=== PATIENT | male | born 1935 ===

== ENCOUNTER 2018-10-14 15:22 | Inpatient (IN) | payer BC, MEDICARE ==
--- NOTE | 2018-10-14 15:46 | C.PDOC ---
History Of Present Illness 83 y/o male with a PMHx of HTN, CAD, s/p CABG, presents via ambulance for evaluation. 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 EMS was called, DON kelley en route. Currently symptom free. No fevers or other complaints. Time Seen by Provider: 10/14/18 15:27 Chief Complaint (Nursing): Chest Pain History Per: Patient History/Exam Limitations: no limitations Onset/Duration Of Symptoms: Hrs Current Symptoms Are (Timing): Better Past Medical History Reviewed: Historical Data, Nursing Documentation, Vital Signs - Medical History PMH: HTN Surgical History: CABG Family History: States: No Known Family Hx - Social History Hx Alcohol Use: No Hx Substance Use: No - Immunization History Hx Tetanus Toxoid Vaccination: No Hx Influenza Vaccination: Yes Hx Pneumococcal Vaccination: No Review Of Systems Except As Marked, All Systems Reviewed And Found Negative. Constitutional: Positive for: Sweats. Negative for: Fever ENT: Negative for: Nose Congestion Cardiovascular: Positive for: Chest Pain, Light Headedness Respiratory: Negative for: Cough, Shortness of Breath Gastrointestinal: Negative for: Nausea, Vomiting, Diarrhea Neurological: Negative for: Weakness, Numbness, Dizziness Physical Exam - Physical Exam Appears: Non-toxic, No Acute Distress Skin: Normal Color, Warm, No Diaphoretic Head: Atraumatic, Normacephalic Eye(s): bilateral: Normal Inspection, PERRL, EOMI Oral Mucosa: Moist Neck: Normal ROM Chest: Symmetrical, No Deformity, No Tenderness Cardiovascular: Rhythm Regular, No Murmur Respiratory: Normal Breath Sounds, No Rales, No Rhonchi, No Wheezing Gastrointestinal/Abdominal: Soft, No Tenderness, No Distention Back: Normal Inspection Extremity: Bilateral: Atraumatic, Normal Color And Temperature, Normal ROM Pulses: Left Dorsalis Pedis: Normal, Right Dorsalis Pedis: Normal Neurological/Psych: Oriented x3, Normal Speech, Normal Cognition, Normal Cranial Nerves ED Course And Treatment - Laboratory Results Result Diagrams: 10/14/18 16:12 10/14/18 16:12 ECG: Interpreted By Me ECG Rhythm: Sinus Rhythm Interpretation Of ECG: nonspecific ST/T wave changes Rate From EC Medical Decision Making Medical Decision Making: cp ro acs Plan: - Blood work - EKG - Chest x-ray lab neg cp<6 hours from time of onset, will need serial trop accpeted hospialtis. Disposition - Disposition Disposition Time: 19:00 Condition: STABLE - Clinical Impression Clinical Impression: Chest pain - Scribe Statement The provider has reviewed the documentation as recorded by the Low Quiles Provider Attestation: All medical record entries made by the Low were at my direction and personally dictated by me. I have reviewed the chart and agree that the record accurately reflects my personal performance of the history, physical exam, medic al decision making, and the department course for this patient. I have also personally directed, reviewed, and agree with the discharge instructions and disposition.
[2018-10-14 16:19] LABS: BASO % 0.1 % (0.0-2.0); EOS # 0.2 K/uL (0.0-0.7); EOS % 1.1 % (0.0-4.0); HEMOGLOBIN 11.8 g/dL (12.0-18.0); LYMPH # 1.1 K/uL (1.0-4.3); LYMPH % 7.2 % (20.0-40.0); MEAN CELL VOLUME 83.8 fL (80.0-94.0); MEAN CORPUSCULAR HEMOGLOBIN 27.5 pg (27.0-31.0); MEAN CORPUSCULAR HGB CONC 32.8 g/dL (33.0-37.0); MEAN PLATELET VOLUME 8.9 fL (7.2-11.7); MONO # 0.9 K/uL (0.0-0.8); MONO % 6.1 % (0.0-10.0); NEUT # 12.6 K/uL (1.8-7.0); NEUT % 85.5 % (50.0-75.0); PLATELET COUNT 247 K/uL (130-400); RBC 4.29 Mil/uL (4.40-5.90); WHITE BLOOD COUNT 14.7 K/uL (4.8-10.8)
[2018-10-14 16:24] LABS: INR 1.1; PROTHROMBIN TIME 12.5 SECONDS (9.7-12.2)
[2018-10-14 17:18] LABS: BLOOD UREA NITROGEN 12 mg/dL (9-20); CALCIUM 9.2 mg/dl (8.6-10.4); GFR NON-AFRICAN AMERICAN > 60
[2018-10-14 17:19] LABS: ALB/GLOB RATIO 1.4 (1.0-2.1); ALT/SGPT 22 U/L (21-72); AST/SGOT 20 U/L (17-59)
[2018-10-14 17:29] LABS: EOSINOPHIL 2 % (0-4); LYMPHOCYTE 5 % (20-40); MONOCYTE 5 % (0-10); NEUTROPHIL 88 % (50-75); PLATELET ESTIMATE NORMAL (NORMAL); TOTAL CELLS COUNTED 100
[2018-10-14 17:30] LABS: MICROCYTOSIS SLIGHT; ROULEAUX FORMATION SLIGHT
--- NOTE | 2018-10-14 18:42 | RAD ---
Date of service: 10/14/2018 PROCEDURE: CHEST RADIOGRAPH, 1 VIEW HISTORY: chest pain COMPARISON: 02/26/2015. FINDINGS: LUNGS: Clear. PLEURA: No pneumothorax or pleural fluid seen. CARDIOVASCULAR: No aortic atherosclerotic calcification present. No radiographic findings to suggest acute or significant cardiovascular disease. Incidental Finding(s): Postoperative changes related to sternotomy. OSSEOUS STRUCTURES: No significant abnormalities. VISUALIZED UPPER ABDOMEN: Normal. OTHER FINDINGS: None. IMPRESSION: No active disease. No acute/significant interval changes.
--- NOTE | 2018-10-14 20:35 | CP.PCM.HP ---
"<Petra Pisano - Last Filed: 10/14/18 21:40> History of Present Illness - History of Present Illness History of Present Illness: Mr. Machado is a 83 year old male with PMHx of CAD s/p CABG, HTN, Diabetes, and Iron Def. Anemia who presents with complaints of 2/10, non-radiating, sharp right sided chest with associated diaphoresis, SOB, and blurry vision. 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 patient was given ASA 81x3 en route to the E.R. His symptoms have resolved by the time he was examined. Patient does admit to 2 weeks of diarrhea. Per his sister (Solder Making Laborer), patient has had diarrhea for 3-4 weeks. He was recently put on Immodium by his PMD and he started the medication on Saturday. He was pending a workup for his diarrhea. ROS POSITIVES: Chest pain, Vision Changes, SOB, Diaphoresis NEGATIVES: Unintentional Weight Loss, night sweats, Fever, Chills, palpitations,abdominal pain, nausea, vomiting, recent camping trips, recent new diet, blood in stool, melena, urinary symptoms, Recent long trips, Orthopnea, dyspnea on exertion, sick contacts, recent antibiotic use. PMHx: CAD s/p CABG, HTN, Diabetes, Iron Def. Anemia PSHx: CABG (2017 at [facility]) Allergies: NKDA SocialHx: Denies Tobacco, EtoH or Illicit Drug Use. Works as a teacher Meds: Patient is sure he takes Diovan, Isosorbid Nitrate, HCTZ, ASA 81. He is unsure of other meds or doses. FamHx: Son - Bypass PMD: Dr. Zaragoza Primary Field Collector: Dr. Odom [facility] Field Collector: Dr. Blair Present on Admission - Present on Admission Any Indicators Present on Admission: No Review of Systems - Review of Systems All systems: reviewed and no additional remarkable complaints except (As per HPI) Review of Systems: As per HPI Past Patient History - Past Social History Smoking Status: Never Smoked - CARDIAC Hx Hypertension: Yes - ENDOCRINE/METABOLIC Hx Diabetes Mellitus Type 2: Yes - PSYCHIATRIC Hx Substance Use: No - SURGICAL HISTORY Hx Coronary Artery Bypass Graft: Yes Meds Allergies/Adverse Reactions: Allergies Allergy/AdvReac Type Severity Reaction Status Date / Time No Known Allergies Allergy Verified 10/14/18 15:32 Physical Exam - Constitutional Appears: Well, Non-toxic, No Acute Distress - Head Exam Head Exam: ATRAUMATIC, NORMAL INSPECTION, NORMOCEPHALIC - Eye Exam Eye Exam: EOMI, PERRL. absent: Conjunctival injection, Scleral icterus Pupil Exam: Miosis - ENT Exam ENT Exam: Mucous Membranes Moist - Neck Exam Neck exam: Positive for: Normal Inspection. Negative for: Lymphadenopathy, Thyromegaly - Respiratory Exam Respiratory Exam: Clear to Auscultation Bilateral. absent: Accessory Muscle Use, Rales, Rhonchi, Wheezes - Cardiovascular Exam Cardiovascular Exam: RRR, +S1, +S2. absent: JVD Additional comments: No Carotid Bruit - GI/Abdominal Exam GI & Abdominal Exam: Soft. absent: Distended, Guarding, Hernia, Hyperactive Bowel Sounds, Rebound, Rigid, Tenderness - Extremities Exam Extremities exam: Positive for: normal capillary refill, normal inspection, pedal pulses present. Negative for: pedal edema - Neurological Exam Neurological exam: Alert, Oriented x3 - Psychiatric Exam Psychiatric exam: Normal Affect, Normal Mood - Skin Skin Exam: Dry, Intact, Normal Color, Warm Results - Vital Signs Recent Vital Signs: Last Vital Signs Temp 97.9 F 10/14/18 19:15 Pulse 88 10/14/18 19:15 Resp 15 10/14/18 19:15 BP 137/63 10/14/18 19:15 Pulse Ox 98 10/14/18 19:15 - Labs Result Diagrams: 10/14/18 16:12 10/14/18 16:12 Labs: Laboratory Results - last 24 hr 10/14/18 10/14/18 10/14/18 16:12 16:12 16:12 WBC 14.7 H RBC 4.29 L Hgb 11.8 L Hct 35.9 MCV 83.8 MCH 27.5 MCHC 32.8 L RDW 14.0 Plt Count 247 MPV 8.9 Neut % (Auto) 85.5 H Lymph % (Auto) 7.2 L Kidder % (Auto) 6.1 Eos % (Auto) 1.1 Baso % (Auto) 0.1 Neut # (Auto) 12.6 H Lymph # (Auto) 1.1 Kidder # (Auto) 0.9 H Eos # (Auto) 0.2 Baso # (Auto) 0.0 Neutrophils % (Manual) 88 H Lymphocytes % (Manual) 5 L Monocytes % (Manual) 5 Eosinophils % (Manual) 2 Platelet Estimate Normal Microcytosis (manual) Slight Rouleaux Slight PT 12.5 H INR 1.1 APTT 28 Sodium 133 Potassium 4.0 Chloride 96 L Carbon Dioxide 27 Anion Gap 14 BUN 12 Creatinine 1.1 Est GFR ( Amer) > 60 Est GFR (Non-Af Amer) > 60 Random Glucose 190 H Calcium 9.2 Total Bilirubin 0.7 AST 20 ALT 22 Alkaline Phosphatase 72 Troponin I < 0.0120 Total Protein 6.8 Albumin 4.0 Globulin 2.8 Albumin/Globulin Ratio 1.4 Assessment & Plan - Assessment and Plan (Free Text) Assessment: 83 year old male with PMHx of CAD s/p CABG, HTN, Diabetes, and Iron Def. Anemia admitted for evaluation and treatment of chest pain r/o ACS. Plan: Chest Pain R/O ACS Troponin #1 Negative, Troponin #2/#3 PENDING CXR (Admission): No Active Disease EKG (Admission): Normal sinus rhythm @ 90BPM ; No Acute ST or Twave changes, F/U Official Read ECHO: Ordered and PENDING Consults: Cardio (Dr. Blair), Recs Appreciated. [id number] | Thyroid Studies PENDING Leukocytosis Ddx: Reactive vs Infectious WBC 14.7 on Admission; Afebrile Blood Cultures - PENDING | UA/Urine Cultures - PENDING Consider ProCal Intractable Diarrhea Stool Cultures - PENDING | Stool OVA & Parasite - PENDING | Stool for C.Diff - PENDING | Fecal Leukocytes - PENDING Consider GI Consult. Diabetes II HgBA1C - PENDING Mgmt: ISS - Medium ACHS F/U with Home Meds. Hx of CAD s/p CABG Mgmt: Home ASA 81 Restart Home Meds when confirmed HTN Patient has been normotensive. Mgmt: Restart Home Meds once confirmed NO BETA BLOCKERS due to adverse reaction in past (Not allergy) Iron Def. Anemia. Mgmt: Restart Home Med once confirmed Proph Lovenox Heart Healthy diet. Dispo: Home meds to be confirmed and started tomorrow. Form for release of medical records in chart. Patient's PMD and/or pharmacy should be called in the AM. Patient discussed with Attending, Dr. Dieter Pisano, PGY-2 <Hilary Garcias V - Last Filed: 10/15/18 08:50> Results - Vital Signs Recent Vital Signs: Last Vital Signs Temp 97.8 F 10/15/18 00:05 Pulse 73 10/15/18 07:43 Resp 20 10/15/18 05:27 BP 130/65 10/15/18 05:27 Pulse Ox 97 10/15/18 05:27 - Labs Result Diagrams: 10/15/18 06:42 10/15/18 06:42 Labs: Laboratory Results - last 24 hr 10/14/18 10/14/18 10/14/18 16:12 16:12 16:12 WBC 14.7 H RBC 4.29 L Hgb 11.8 L Hct 35.9 MCV 83.8 MCH 27.5 MCHC 32.8 L RDW 14.0 Plt Count 247 MPV 8.9 Neut % (Auto) 85.5 H Lymph % (Auto) 7.2 L Kidder % (Auto) 6.1 Eos % (Auto) 1.1 Baso % (Auto) 0.1 Neut # (Auto) 12.6 H Lymph # (Auto) 1.1 Kidder # (Auto) 0.9 H Eos # (Auto) 0.2 Baso # (Auto) 0.0 Neutrophils % (Manual) 88 H Lymphocytes % (Manual) 5 L Monocytes % (Manual) 5 Eosinophils % (Manual) 2 Platelet Estimate Normal Microcytosis (manual) Slight Rouleaux Slight PT 12.5 H INR 1.1 APTT 28 Sodium 133 Potassium 4.0 Chloride 96 L Carbon Dioxide 27 Anion Gap 14 BUN 12 Creatinine 1.1 Est GFR ( Amer) > 60 Est GFR (Non-Af Amer) > 60 POC Glucose (mg/dL) Random Glucose 190 H Hemoglobin A1c Calcium 9.2 Phosphorus Magnesium Total Bilirubin 0.7 AST 20 ALT 22 Alkaline Phosphatase 72 Total Creatine Kinase CK-MB (Mass) Troponin I < 0.0120 Total Protein 6.8 Albumin 4.0 Globulin 2.8 Albumin/Globulin Ratio 1.4 Free T4 TSH 3rd Generation Urine Color Urine Clarity Urine pH Ur Specific [place] Urine Protein Urine Glucose (UA) Urine Ketones Urine Blood Urine Nitrate Urine Bilirubin Urine Urobilinogen Ur Leukocyte Esterase Urine WBC (Auto) Urine RBC (Auto) Ur Squamous Epith Cells Urine Bacteria Hyaline Casts 10/14/18 10/14/18 10/15/18 21:29 22:27 01:35 WBC RBC Hgb Hct MCV MCH MCHC RDW Plt Count MPV Neut % (Auto) Lymph % (Auto) Kidder % (Auto) Eos % (Auto) Baso % (Auto) Neut # (Auto) Lymph # (Auto) Kidder # (Auto) Eos # (Auto) Baso # (Auto) Neutrophils % (Manual) Lymphocytes % (Manual) Monocytes % (Manual) Eosinophils % (Manual) Platelet Estimate Microcytosis (manual) Rouleaux PT INR APTT Sodium Potassium Chloride Carbon Dioxide Anion Gap BUN Creatinine Est GFR ( Amer) Est GFR (Non-Af Amer) POC Glucose (mg/dL) 196 H Random Glucose Hemoglobin A1c Calcium Phosphorus Magnesium Total Bilirubin AST ALT Alkaline Phosphatase Total Creatine Kinase 98 CK-MB (Mass) 9.76 H Troponin I 1.5500 H* Total Protein Albumin Globulin Albumin/Globulin Ratio Free T4 TSH 3rd Generation Urine Color Kristen Urine Clarity Hazy Urine pH 5.0 Ur Specific [place] 1.019 Urine Protein 1+ H Urine Glucose (UA) Normal Urine Ketones Negative Urine Blood Negative Urine Nitrate Negative Urine Bilirubin Negative Urine Urobilinogen Normal Ur Leukocyte Esterase Neg Urine WBC (Auto) 4 Urine RBC (Auto) 21 H Ur Squamous Epith Cells < 1 Urine Bacteria Rare Hyaline Casts 3-5 H 10/15/18 10/15/18 10/15/18 06:42 06:42 06:42 WBC 13.1 H RBC 4.00 L Hgb 11.3 L Hct 33.3 L MCV 83.3 MCH 28.2 MCHC 33.8 RDW 13.8 Plt Count 228 MPV 9.4 Neut % (Auto) 78.7 H Lymph % (Auto) 11.7 L Kidder % (Auto) 7.3 Eos % (Auto) 2.3 Baso % (Auto) 0.0 Neut # (Auto) 10.3 H Lymph # (Auto) 1.5 Kidder # (Auto) 0.9 H Eos # (Auto) 0.3 Baso # (Auto) 0.0 Neutrophils % (Manual) Lymphocytes % (Manual) Monocytes % (Manual) Eosinophils % (Manual) Platelet Estimate Microcytosis (manual) Rouleaux PT INR APTT Sodium 131 L Potassium 3.6 Chloride 96 L Carbon Dioxide 27 Anion Gap 12 BUN 12 Creatinine 0.9 Est GFR ( Amer) > 60 Est GFR (Non-Af Amer) > 60 POC Glucose (mg/dL) Random Glucose 157 H Hemoglobin A1c Calcium 8.9 Phosphorus 3.4 Magnesium 1.7 Total Bilirubin 0.4 AST 61 H D ALT 25 Alkaline Phosphatase 83 Total Creatine Kinase 185 H CK-MB (Mass) 23.6 H Troponin I Total Protein 6.4 Albumin 3.7 Globulin 2.7 Albumin/Globulin Ratio 1.4 Free T4 1.32 TSH 3rd Generation 1.85 Urine Color Urine Clarity Urine pH Ur Specific [place] Urine Protein Urine Glucose (UA) Urine Ketones Urine Blood Urine Nitrate Urine Bilirubin Urine Urobilinogen Ur Leukocyte Esterase Urine WBC (Auto) Urine RBC (Auto) Ur Squamous Epith Cells Urine Bacteria Hyaline Casts 10/15/18 10/15/18 06:42 06:42 WBC RBC Hgb Hct MCV MCH MCHC RDW Plt Count MPV Neut % (Auto) Lymph % (Auto) Kidder % (Auto) Eos % (Auto) Baso % (Auto) Neut # (Auto) Lymph # (Auto) Kidder # (Auto) Eos # (Auto) Baso # (Auto) Neutrophils % (Manual) Lymphocytes % (Manual) Monocytes % (Manual) Eosinophils % (Manual) Platelet Estimate Microcytosis (manual) Rouleaux PT INR APTT 47 H D Sodium Potassium Chloride Carbon Dioxide Anion Gap BUN Creatinine Est GFR ( Amer) Est GFR (Non-Af Amer) POC Glucose (mg/dL) Random Glucose Hemoglobin A1c 6.6 H Calcium Phosphorus Magnesium Total Bilirubin AST ALT Alkaline Phosphatase Total Creatine Kinase CK-MB (Mass) Troponin I Total Protein Albumin Globulin Albumin/Globulin Ratio Free T4 TSH 3rd Generation Urine Color Urine Clarity Urine pH Ur Specific [place] Urine Protein Urine Glucose (UA) Urine Ketones Urine Blood Urine Nitrate Urine Bilirubin Urine Urobilinogen Ur Leukocyte Esterase Urine WBC (Auto) Urine RBC (Auto) Ur Squamous Epith Cells Urine Bacteria Hyaline Casts Attending/Attestation - Attestation I have personally seen and examined this patient.: Yes I have fully participated in the care of the patient.: Yes I have reviewed all pertinent clinical information: Yes Notes (Text): This is an 83-year-old male with past medical history including CABG quadruple bypass surgery in 2003 reports he has had a repeat In 2017 at [place] which he reports is normal as well as diabetes, hypertension, and lipid disorder who comes in after 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 Patient reports he is compliant on his medications which include aspirin and Plavix Norvasc Diovan and a statin. He reports that he has been on a beta-meagan prior to for about 10 years but had reported syncopal episode secondary to the beta-meagan and was subsequently stopped by a product distribution specialist. Given patient has high significant cardiac risk factors for cardiac origin of chest pain we will monitor him on telemetry initial troponin is negative. We will consult cardiology Dr. Alegre who is known the patient in the prior visits. We will try to obtain patient's last cardiac cath report from [place] in 2017 as well as records from his PMD Dr. Wagner. Patient is ordered for echocardiogram as well. Patient was started on medications including aspirin Plavix statin and blood pressure medications we have held off beta-meagan in light of his prior syncopal episodes. Patient al so noted to be having about 3 weeks of having diarrhea or loose stool no blood in the stool no recent travel no outside food he is G. Vegetarian. We will collect stool samples belly is quite benign. Patient is with good family support I did ask in terms of CODE STATUS he is full code. Plan: 1. Chest Pain Assessment/plan Significant cardiac risk factors including CAD, CABG initially in 1999 3 repeat In 2017 diabetes hypertension lipid disorder Troponin #1 Negative, Troponin #2/#3 PENDING CXR (Admission): No Active Disease EKG (Admission): Normal sinus rhythm @ 90BPM ; No Acute ST or Twave changes, F/U Official Read ECHO: Ordered and PENDING Consults: Cardio (Dr. Blair), Recs Appreciated. Aspirin 81 mg once a day Plavix 75 mg once a day We will resume antihypertensive therapy will hold off beta-meagan given prior syncopal episodes and And statin therapy Monitor on telemetry 2. Leukocytosis Assessment/plan Unclear if white count is related to possible heart disease or if it is related to diarrhea Ddx: Reactive vs Infectious WBC 14.7 on Admission; Afebrile We will check baseline blood cultures and urine and urine cultures As well as stool cultures 3. Diarrhea Assessment/plan Stool Cultures - PENDING | Stool OVA & Parasite - PENDING | Stool for C.Diff - PENDING | Fecal Leukocytes - PENDING Noted he has had a discussion with his PMD in the past does not really want to do a colonoscopy given age does not report any weight loss no prior history of colon cancer family history of colon cancer reports weight is about the same. 4. History of known diabetes II Assessment/plan * HgBA1C - PENDING * Mgmt: ISS - Medium ACHS F/U with Home Meds * Hypoglycemic protocol * Aspirin and statin therapy * Family will bring in medications to confirm possible Januvia dose 5. Hx of CAD s/p CABG Assessment/plan * Mgmt: * Home ASA 81 milligrams once a day Restart Home Meds when confirmed including blood pressure medication, statin, 6. HTN Assessment/plan * Patient has been normotensive. * Mgmt: * Restart Home Meds once confirmed * Related beta-meagan not started given prior syncopal episode after 10-year history of using beta-meagan per patient 7. Iron Def. Anemia Assessment/plan Mgmt: Restart Home Med once confirmed 8.Prophylactic measure * Lovenox 40 mg subcu once daily * Heart Healthy diet * SCDs bilateral * Monitor on telemetry * Full code"
[2018-10-14] MEDS: (Novolin R) Insulin Human Regular 100 units/ml vial SC SCH (21:49)
[2018-10-14 23:04] LABS: CK-MB 9.76 ng/mL (0.0-3.38); TROPONIN I 1.55 ng/mL (0.00-0.120)
--- NOTE | 2018-10-14 23:58 | CP.PCM.PN ---
Subjective - Date & Time of Evaluation Date of Evaluation: 10/14/18 Time of Evaluation: 23:55 - Subjective Subjective: PGY-1 Overnight Note Patient with elevated second set of Troponins/CK. EKG repeated STAT was normal sinus with no ST changes. Dr. Condon contacted for Dr. Blair's service, and patient was started on Metoprolol, Plavix, Crestor, and Heparin drip. Patient not complaining of any chest pain, shortness of breath, dizziness, and is res ting comfortably in bed. Objective - Vital Signs/Intake and Output Vital Signs (last 24 hours): Temp Pulse Resp BP Pulse Ox 97.9 F 88 15 137/63 98 10/14/18 19:15 10/14/18 19:15 10/14/18 19:15 10/14/18 19:15 10/14/18 19:15 - Medications Medications: Current Medications Aspirin (Aspirin Chewable) 81 mg PO DAILY SHAD Clopidogrel Bisulfate (Plavix) 75 mg PO DAILY [facility] Heparin Sodium/Sodium Chloride (Heparin 47164 Units/250ml 1/2 Normal Saline) 25,000 units in 250 mls @ 9.525 mls/hr IV .Q24H PRN; Protocol PRN Reason: PROTOCOL Insulin Human Regular (Novolin R) 0 unit SC ACHS [facility]; Protocol Last Admin: 10/14/18 21:49 Dose: Not Given Lidocaine (Lidoderm) 1 ea TD ONCE ONE Stop: 10/15/18 22:37 Metoprolol Tartrate (Lopressor) 12.5 mg PO BID SHAD Rosuvastatin Calcium (Crestor) 20 mg PO HS [facility] - Labs Labs: 10/14/18 16:12 10/14/18 16:12 PT 12.5 SECONDS (9.7-12.2) H 10/14/18 16:12 INR 1.1 10/14/18 16:12 APTT 28 SECONDS (21-34) 10/14/18 16:12
[2018-10-15] MEDS: Heparin25000 units/250ml 1/2NS 25,000 UNITS/250 ML BAG IV PRN (01:09)
[2018-10-15 01:55] LABS: SQUAMOUS EPITHIAL < 1 /hpf (0-5); URINE BACTERIA RARE (<OCC); URINE BILIRUBIN NEGATIVE (NEGATIVE); URINE BLOOD NEGATIVE (NEGATIVE); URINE CLARITY Hazy (Clear); URINE COLOR Amber (YELLOW); URINE GLUCOSE (UA) NORMAL (Normal); URINE LEUKOCYTE ESTERASE NEG Leu/uL (Negative); URINE PROTEIN 1+ mg/dL (NEGATIVE); URINE UROBILINOGEN NORMAL mg/dL (0.2-1.0)
[2018-10-15 07:38] LABS: EOS # 0.3 K/uL (0.0-0.7); EOS % 2.3 % (0.0-4.0); HEMOGLOBIN 11.3 g/dL (12.0-18.0); LYMPH # 1.5 K/uL (1.0-4.3); LYMPH % 11.7 % (20.0-40.0); MEAN CELL VOLUME 83.3 fL (80.0-94.0); MEAN CORPUSCULAR HEMOGLOBIN 28.2 pg (27.0-31.0); MEAN CORPUSCULAR HGB CONC 33.8 g/dL (33.0-37.0); MEAN PLATELET VOLUME 9.4 fL (7.2-11.7); MONO # 0.9 K/uL (0.0-0.8); MONO % 7.3 % (0.0-10.0); NEUT # 10.3 K/uL (1.8-7.0); NEUT % 78.7 % (50.0-75.0); RED CELL DISTRIBUTION WIDTH 13.8 % (11.5-14.5); WHITE BLOOD COUNT 13.1 K/uL (4.8-10.8)
--- NOTE | 2018-10-15 07:46 | CP.PCM.PN ---
<Uche Badillo - Last Filed: 10/15/18 09:32> Subjective - Date & Time of Evaluation Date of Evaluation: 10/15/18 Time of Evaluation: 07:46 - Subjective Subjective: PGY-1 Medicine Progress Note for Dr. Garcias Patient was seen and examined this AM down in ECHO room, in no acute distress. No overnight events reported. Patient denies any chest pain, palpitations, sob, dizziness. He states he hasn't felt any pain or discomfort since yesterday. Patient's serial troponins noted to be elevated overnight (<0.0120->1.55-->9.34). EKG stat was ordered for this AM after ECHO. Discussed case with Dr. Feng, to be transferred to ICU. Objective - Vital Signs/Intake and Output Vital Signs (last 24 hours): Temp Pulse Resp BP Pulse Ox 97.8 F 73 20 130/65 97 10/15/18 00:05 10/15/18 07:43 10/15/18 05:27 10/15/18 05:27 10/15/18 05:27 - Medications Medications: Current Medications Aspirin (Aspirin Chewable) 81 mg PO DAILY [facility] Clopidogrel Bisulfate (Plavix) 75 mg PO DAILY [facility] Heparin Sodium/Sodium Chloride (Heparin 83658 Units/250ml 1/2 Normal Saline) 25,000 units in 250 mls @ 9.525 mls/hr IV .Q24H PRN; Protocol PRN Reason: PROTOCOL Last Admin: 10/15/18 01:09 Dose: 12 units/kg/hr, 9.525 mls/hr Insulin Human Regular (Novolin R) 0 unit SC ACHS [facility]; Protocol Last Admin: 10/14/18 21:49 Dose: Not Given Lidocaine (Lidoderm) 1 ea TD ONCE ONE Stop: 10/15/18 22:37 Metoprolol Tartrate (Lopressor) 12.5 mg PO BID [facility] Last Admin: 10/15/18 01:22 Dose: Not Given Rosuvastatin Calcium (Crestor) 20 mg PO HS [facility] - Labs Labs: 10/15/18 06:42 10/14/18 16:12 PT 12.5 SECONDS (9.7-12.2) H 10/14/18 16:12 INR 1.1 10/14/18 16:12 APTT 47 SECONDS (21-34) H D 10/15/18 06:42 - Constitutional Appears: No Acute Distress - Head Exam Head Exam: ATRAUMATIC, NORMAL INSPECTION, NORMOCEPHALIC - Eye Exam Eye Exam: EOMI, Normal appearance Pupil Exam: NORMAL ACCOMODATION - ENT Exam ENT Exam: Mucous Membranes Moist, Normal Exam - Neck Exam Neck Exam: Full ROM, Normal Inspection. absent: Tenderness - Respiratory Exam Respiratory Exam: Clear to Ausculation Bilateral, NORMAL BREATHING PATTERN. absent: Accessory Muscle Use, Rales, Rhonchi, Wheezes, Respiratory Distress, Stridor - Cardiovascular Exam Cardiovascular Exam: REGULAR RHYTHM, +S1, +S2 - GI/Abdominal Exam GI & Abdominal Exam: Soft, Normal Bowel Sounds. absent: Distended, Firm, Guarding, Rigid, Tenderness, Rebound - Extremities Exam Extremities Exam: Full ROM, Normal Capillary Refill, Normal Inspection - Neurological Exam Neurological Exam: Alert, Awake, Oriented x3 - Psychiatric Exam Psychiatric exam: Normal Affect, Normal Mood - Skin Skin Exam: Dry, Intact, Normal Color, Warm Assessment and Plan - Assessment and Plan (Free Text) Assessment: 83 year old male with PMHx of CAD s/p CABG, HTN, Diabetes, and Iron Def. Anemia admitted for evaluation and treatment of chest pain r/o ACS. Serial troponins progressively elevated, EKG stat to be completed this AM post ECHO. Pt discussed with ICU attending, to be transferred to unit for further monitoring. Plan: NSTEMI -pt in no acute distress, denies any cp/palpitations/sob/dizziness -vitals stable -progressively elevated serial trop series (<0.0120->1.55-->9.34) -CXR (10/14): no acute findings -EKG (10/14): NSR @ [address] elevations or ischemic changes noted -repeat EKG stat this AM to r/o STEMI -f/u ECHO -Cardiology (Dr. Blair) on case -transfer to ICU for further monitoring, case discussed with ICU attending (Dr. Feng) -ASA 81 mg PO daily -Plavix 75 mg PO daily -heparin gtt -crestor 20 mg PO HS -metoprolol 12.5 mg PO BID Hx of CAD s/p CABG -CABG 2017 at [facility] -ASA -Plavix -Crestor -BB -restarted home Losartan, HCTZ (10/15) DM II -A1C 6.6 -home meds held -ISS medium -accuchecks ACHS -hypoglycemic protocol HTN -normotensive, continue to monitor -restarted Losartan, HCTZ Leukocytosis -r/o reactive vs infectious etiology -leukocytosis downtrending, 13.1 (10/15) -f/u BCx, Urine Cx Intractable Diarrhea -f/u stool cx, ova and parasite, c diff, fecal leukocyte PPx, Diet, Disposition -DVT: scds, heparin ggt -GI: not indicated at this time -Diet: HHD Case discussed with Dr. Dieter Badillo DO, PGY-1 <Hilary Garcias V - Last Filed: 10/15/18 23:17> Objective - Vital Signs/Intake and Output Vital Signs (last 24 hours): Temp Pulse Resp BP Pulse Ox 97.2 F L 75 16 139/72 98 10/15/18 08:50 10/15/18 20:00 10/15/18 20:00 10/15/18 19:59 10/15/18 20:00 Intake and Output: 10/15/18 10/16/18 18:59 06:59 Intake Total 376.0 9.5 Output Total 400 Balance -24.0 9.5 - Medications Medications: Current Medications Aspirin (Aspirin Chewable) 81 mg PO DAILY [facility] Last Admin: 10/15/18 10:11 Dose: 81 mg Clopidogrel Bisulfate (Plavix) 75 mg PO DAILY [facility] Last Admin: 10/15/18 10:11 Dose: Not Given Famotidine (Pepcid) 20 mg PO DAILY [facility] Hydrochlorothiazide (Hydrodiuril) 25 mg PO DAILY [facility] Last Admin: 10/15/18 10:10 Dose: 25 mg Heparin Sodium/Sodium Chloride (Heparin 58855 Units/250ml 1/2 Normal Saline) 25,000 units in 250 mls @ 9.525 mls/hr IV .Q24H PRN; Protocol PRN Reason: PROTOCOL Last Admin: 10/15/18 01:09 Dose: 12 units/kg/hr, 9.525 mls/hr Insulin Human Regular (Novolin R) 0 unit SC [facility]; Protocol Last Admin: 10/15/18 22:00 Dose: Not Given Losartan Potassium (Cozaar) 100 mg PO DAILY [facility] Last Admin: 10/15/18 10:09 Dose: 100 mg Metoprolol Tartrate (Lopressor) 12.5 mg PO BID [facility] Last Admin: 10/15/18 17:50 Dose: 12.5 mg Rosuvastatin Calcium (Crestor) 20 mg PO HS [facility] Last Admin: 10/15/18 21:57 Dose: 20 mg - Labs Labs: 10/15/18 06:42 10/15/18 06:42 PT 12.5 SECONDS (9.7-12.2) H 10/14/18 16:12 INR 1.1 10/14/18 16:12 APTT 61 SECONDS (21-34) H D 10/15/18 21:15 Attending/Attestation - Attestation I have personally seen and examined this patient.: Yes I have fully participated in the care of the patient.: Yes I have reviewed all pertinent clinical information, including history, physical exam and plan: Yes Notes (Text): Patient is an 83-year-old male with past medical history including CABG known CAD diabetes, lipid disorder, hypertension who came in after chest pain and associated on feeling well. Overnight patient did have a positive troponin was started on a heparin drip night resident did inform cardiology service. Patient seen this morning given that the troponin did increase from 1-9. Patient was evaluated while an echo patient denies any acute complaints reports he does not have any pain. Discussed case with ICU patient transferred to ICU for further monitoring. Patient reevaluated with a family present at bedside bedside this afternoon patient's 2 daughters as well as sister was present at bedside patient continues to not have any pain. Discussed case with Dr. Alegre noted the family request to be transferred to [place] to be seen by the side guider for Cardiac catheter cardiac cath Dr. Quevedo has filled out the intolerance spoken to [place] we are awaiting a bed when bed is available patient will be transferred to [place]. Assessment/plan NSTEMI * Transferred to the intensive care following troponin rise from 1to 9 this morning * Patient did receive aspirin, Plavix, as well as heparin drip * Serial EKGs performed patient is non-STEMI discussed case with cardiology patient to be transferred to [place] to be seen by the primary side guider per request of family * Patient is currently on aspirin, Plavix, beta-meagan, heparin drip, statin, thiazide diuretic and Norvasc * Patient has significant cardiac risk factors including CAD, history of quadruple bypass surgery initially in 1999 3 repeat cardiac cath in 2017 as well as lipids are diabetes, hypertension Hx of CAD s/p CABG -CABG 2017 at [facility] -ASA -Plavix -Crestor -BB -restarted home Losartan, HCTZ (10/15) DM II -A1C 6.6 -home meds held -ISS medium -accuchecks ACHS -hypoglycemic protocol HTN Continue antihypertensives Leukocytosis Monitor Blood cultures negative times 24 hours x2 Awaiting stool culture since patient had also noted diarrhea for approximately 2-3 weeks Diarrhea -f/u stool cx, ova and parasite, c diff, fecal leukocyte Patient did provide a sample awaiting results PPx, Diet, Disposition -DVT: scds, heparin ggt -GI: not indicated at this time -Diet: HHD Disposition: Patient changed to inpatient given patient as having a non-STEMI with worsening troponin from 129 this morning. Discussed case with cardiology intensive care. Patient transferred to the critical care unit for further monitoring. Discussed case with cardiology patient is pending transfer to [place] with cardiac cath. Per request of family patient is awaiting bed continue to monitor
[2018-10-15 07:55] LABS: ALB/GLOB RATIO 1.4 (1.0-2.1); ALBUMIN 3.7 g/dL (3.5-5.0); ALT/SGPT 25 U/L (21-72); AST/SGOT 61 U/L (17-59); BLOOD UREA NITROGEN 12 mg/dL (9-20); CALCIUM 8.9 mg/dl (8.6-10.4); GFR NON-AFRICAN AMERICAN > 60
[2018-10-15 08:04] LABS: CK-MB 23.6 ng/mL (0.0-3.38)
[2018-10-15] MEDS: (Novolin R) Insulin Human Regular 100 units/ml vial SC SCH ×4 (08:25→22:00)
[2018-10-15] MEDS ORDERED: Enoxaparin 40 mg Syringe SC SCH (10:00)
--- NOTE | 2018-10-15 11:04 | CP.PCM.CON ---
<Anthony Shrestha M - Last Filed: 10/15/18 17:36> History of Present Illness - History of Present Illness History of Present Illness: Critical Care Consult note for Dr. Feng. Critical care consult note for NSTEMI 83 M w/ PMhx of PMHx of CAD s/p CABG, HTN, Diabetes, and Iron Def. 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 Following aspirin 81 X 3 given in ambulance, patient chest pain subsided. Patient admitted for observation of unstable angina. Overnight patient had rise in troponins to 9.[address] elevations. Patient remained asymptomatic. Patient started on heparin drip, loaded with plavix and aspirin. Patient transferred to ICU for further management. Currently patient is asymptomatic. Of note patient reports to recent episodes of diarrhea (3-4 weeks, non bloody), currently immodium by primary and pending diarrhea workup. ROS: Denies headaches, vision changes, nausea, vomiting, chest pain, SOB, cough, abdominal pain, constipation, fevers, chills. PMHx: CAD s/p CABG, HTN, Diabetes, Iron Def. Anemia PSHx: CABG (2003 at [facility]), Cardiac cath 2017 (patent arteries) Allergies: NKDA SocialHx: Denies Tobacco, EtoH or Illicit Drug Use. Works as a teacher Meds: Patient is sure he takes Diovan, Isosorbid Nitrate, HCTZ, ASA 81. He is unsure of other meds or doses. FamHx: Son - Bypass Review of Systems - Constitutional Constitutional: absent: Anorexia, Chills, Headache - EENT Eyes: absent: Blurred Vision - Cardiovascular Cardiovascular: absent: Chest Pain, Chest Pain at Rest, Dyspnea - Respiratory Respiratory: absent: Dyspnea on Exertion - Gastrointestinal Gastrointestinal: absent: Cramping, Diarrhea - Genitourinary Genitourinary: absent: Hematuria, Pyuria - Musculoskeletal Musculoskeletal: absent: Abnormal Gait, Muscle Weakness - Neurological Neurological: absent: Dizziness, Headaches - Endocrine Endocrine: absent: Deepening of Voice, Polyuria Past Patient History - Past Social History Smoking Status: Never Smoked - CARDIAC Hx Hypertension: Yes - ENDOCRINE/METABOLIC Hx Diabetes Mellitus Type 2: Yes - PSYCHIATRIC Hx Substance Use: No - SURGICAL HISTORY Hx Coronary Artery Bypass Graft: Yes Meds Allergies/Adverse Reactions: Allergies Allergy/AdvReac Type Severity Reaction Status Date / Time No Known Allergies Allergy Verified 10/14/18 15:32 - Medications Medications: Current Medications Aspirin (Aspirin Chewable) 81 mg PO DAILY [facility] Last Admin: 10/15/18 10:11 Dose: 81 mg Clopidogrel Bisulfate (Plavix) 75 mg PO DAILY [facility] Last Admin: 10/15/18 10:11 Dose: Not Given Hydrochlorothiazide (Hydrodiuril) 25 mg PO DAILY [facility] Last Admin: 10/15/18 10:10 Dose: 25 mg Heparin Sodium/Sodium Chloride (Heparin 44686 Units/250ml 1/2 Normal Saline) 25,000 units in 250 mls @ 9.525 mls/hr IV .Q24H PRN; Protocol PRN Reason: PROTOCOL Last Admin: 10/15/18 01:09 Dose: 12 units/kg/hr, 9.525 mls/hr Insulin Human Regular (Novolin R) 0 unit SC ACHS [facility]; Protocol Last Admin: 10/15/18 08:25 Dose: 2 units Lidocaine (Lidoderm) 1 ea TD ONCE ONE Stop: 10/15/18 22:37 Losartan Potassium (Cozaar) 100 mg PO DAILY [facility] Last Admin: 10/15/18 10:09 Dose: 100 mg Metoprolol Tartrate (Lopressor) 12.5 mg PO BID [facility] Last Admin: 10/15/18 10:10 Dose: 12.5 mg Rosuvastatin Calcium (Crestor) 20 mg PO [facility] Physical Exam - Constitutional Appears: Non-toxic, No Acute Distress - Head Exam Head Exam: NORMAL INSPECTION - Eye Exam Eye Exam: EOMI, Normal appearance - ENT Exam ENT Exam: Mucous Membranes Moist - Respiratory Exam Respiratory Exam: Clear to Auscultation Bilateral, NORMAL BREATHING PATTERN. absent: Rales, Rhonchi, Wheezes - Cardiovascular Exam Cardiovascular Exam: +S1, +S2. absent: Systolic Murmur - GI/Abdominal Exam GI & Abdominal Exam: Normal Bowel Sounds, Soft. absent: Firm, Mass - Extremities Exam Extremities exam: Positive for: full ROM, normal inspection. Negative for: calf tenderness, pedal edema - Back Exam Back exam: absent: CVA tenderness (L), CVA tenderness (R) - Neurological Exam Neurological exam: Alert, Oriented x3 - Psychiatric Exam Psychiatric exam: Normal Affect, Normal Mood - Skin Skin Exam: Dry, Normal Color, Warm Results - Vital Signs Recent Vital Signs: Last Vital Signs Temp 97.2 F L 10/15/18 08:50 Pulse 72 10/15/18 08:50 Resp 20 10/15/18 08:50 BP 127/67 10/15/18 08:50 Pulse Ox 97 10/15/18 08:50 - Labs Result Diagrams: 10/15/18 06:42 10/15/18 06:42 Labs: Laboratory Results - last 24 hr 10/14/18 10/14/18 10/14/18 16:12 16:12 16:12 WBC 14.7 H RBC 4.29 L Hgb 11.8 L Hct 35.9 MCV 83.8 MCH 27.5 MCHC 32.8 L RDW 14.0 Plt Count 247 MPV 8.9 Neut % (Auto) 85.5 H Lymph % (Auto) 7.2 L Barron % (Auto) 6.1 Eos % (Auto) 1.1 Baso % (Auto) 0.1 Neut # (Auto) 12.6 H Lymph # (Auto) 1.1 Barron # (Auto) 0.9 H Eos # (Auto) 0.2 Baso # (Auto) 0.0 Neutrophils % (Manual) 88 H Lymphocytes % (Manual) 5 L Monocytes % (Manual) 5 Eosinophils % (Manual) 2 Platelet Estimate Normal Microcytosis (manual) Slight Rouleaux Slight PT 12.5 H INR 1.1 APTT 28 Sodium 133 Potassium 4.0 Chloride 96 L Carbon Dioxide 27 Anion Gap 14 BUN 12 Creatinine 1.1 Est GFR ( Amer) > 60 Est GFR (Non-Af Amer) > 60 POC Glucose (mg/dL) Random Glucose 190 H Hemoglobin A1c Calcium 9.2 Phosphorus Magnesium Total Bilirubin 0.7 AST 20 ALT 22 Alkaline Phosphatase 72 Total Creatine Kinase CK-MB (Mass) Troponin I < 0.0120 Total Protein 6.8 Albumin 4.0 Globulin 2.8 Albumin/Globulin Ratio 1.4 Vitamin B12 Free T4 TSH 3rd Generation Urine Color Urine Clarity Urine pH Ur Specific Nemo Urine Protein Urine Glucose (UA) Urine Ketones Urine Blood Urine Nitrate Urine Bilirubin Urine Urobilinogen Ur Leukocyte Esterase Urine WBC (Auto) Urine RBC (Auto) Ur Squamous Epith Cells Urine Bacteria Hyaline Casts 10/14/18 10/14/18 10/15/18 21:29 22:27 01:35 WBC RBC Hgb Hct MCV MCH MCHC RDW Plt Count MPV Neut % (Auto) Lymph % (Auto) Barron % (Auto) Eos % (Auto) Baso % (Auto) Neut # (Auto) Lymph # (Auto) Barron # (Auto) Eos # (Auto) Baso # (Auto) Neutrophils % (Manual) Lymphocytes % (Manual) Monocytes % (Manual) Eosinophils % (Manual) Platelet Estimate Microcytosis (manual) Rouleaux PT INR APTT Sodium Potassium Chloride Carbon Dioxide Anion Gap BUN Creatinine Est GFR ( Amer) Est GFR (Non-Af Amer) POC Glucose (mg/dL) 196 H Random Glucose Hemoglobin A1c Calcium Phosphorus Magnesium Total Bilirubin AST ALT Alkaline Phosphatase Total Creatine Kinase 98 CK-MB (Mass) 9.76 H Troponin I 1.5500 H* Total Protein Albumin Globulin Albumin/Globulin Ratio Vitamin B12 Free T4 TSH 3rd Generation Urine Color Kristen Urine Clarity Hazy Urine pH 5.0 Ur Specific Nemo 1.019 Urine Protein 1+ H Urine Glucose (UA) Normal Urine Ketones Negative Urine Blood Negative Urine Nitrate Negative Urine Bilirubin Negative Urine Urobilinogen Normal Ur Leukocyte Esterase Neg Urine WBC (Auto) 4 Urine RBC (Auto) 21 H Ur Squamous Epith Cells < 1 Urine Bacteria Rare Hyaline Casts 3-5 H 10/15/18 10/15/18 10/15/18 06:42 06:42 06:42 WBC 13.1 H RBC 4.00 L Hgb 11.3 L Hct 33.3 L MCV 83.3 MCH 28.2 MCHC 33.8 RDW 13.8 Plt Count 228 MPV 9.4 Neut % (Auto) 78.7 H Lymph % (Auto) 11.7 L Barron % (Auto) 7.3 Eos % (Auto) 2.3 Baso % (Auto) 0.0 Neut # (Auto) 10.3 H Lymph # (Auto) 1.5 Barron # (Auto) 0.9 H Eos # (Auto) 0.3 Baso # (Auto) 0.0 Neutrophils % (Manual) Lymphocytes % (Manual) Monocytes % (Manual) Eosinophils % (Manual) Platelet Estimate Microcytosis (manual) Rouleaux PT INR APTT Sodium 131 L Potassium 3.6 Chloride 96 L Carbon Dioxide 27 Anion Gap 12 BUN 12 Creatinine 0.9 Est GFR ( Amer) > 60 Est GFR (Non-Af Amer) > 60 POC Glucose (mg/dL) Random Glucose 157 H Hemoglobin A1c Calcium 8.9 Phosphorus 3.4 Magnesium 1.7 Total Bilirubin 0.4 AST 61 H D ALT 25 Alkaline Phosphatase 83 Total Creatine Kinase 185 H CK-MB (Mass) 23.6 H Troponin I 9.3400 H* Total Protein 6.4 Albumin 3.7 Globulin 2.7 Albumin/Globulin Ratio 1.4 Vitamin B12 910 Free T4 1.32 TSH 3rd Generation 1.85 Urine Color Urine Clarity Urine pH Ur Specific Nemo Urine Protein Urine Glucose (UA) Urine Ketones Urine Blood Urine Nitrate Urine Bilirubin Urine Urobilinogen Ur Leukocyte Esterase Urine WBC (Auto) Urine RBC (Auto) Ur Squamous Epith Cells Urine Bacteria Hyaline Casts 10/15/18 10/15/18 06:42 06:42 WBC RBC Hgb Hct MCV MCH MCHC RDW Plt Count MPV Neut % (Auto) Lymph % (Auto) Barron % (Auto) Eos % (Auto) Baso % (Auto) Neut # (Auto) Lymph # (Auto) Barron # (Auto) Eos # (Auto) Baso # (Auto) Neutrophils % (Manual) Lymphocytes % (Manual) Monocytes % (Manual) Eosinophils % (Manual) Platelet Estimate Microcytosis (manual) Rouleaux PT INR APTT 47 H D Sodium Potassium Chloride Carbon Dioxide Anion Gap BUN Creatinine Est GFR ( Amer) Est GFR (Non-Af Amer) POC Glucose (mg/dL) Random Glucose Hemoglobin A1c 6.6 H Calcium Phosphorus Magnesium Total Bilirubin AST ALT Alkaline Phosphatase Total Creatine Kinase CK-MB (Mass) Troponin I Total Protein Albumin Globulin Albumin/Globulin Ratio Vitamin B12 Free T4 TSH 3rd Generation Urine Color Urine Clarity Urine pH Ur Specific Nemo Urine Protein Urine Glucose (UA) Urine Ketones Urine Blood Urine Nitrate Urine Bilirubin Urine Urobilinogen Ur Leukocyte Esterase Urine WBC (Auto) Urine RBC (Auto) Ur Squamous Epith Cells Urine Bacteria Hyaline Casts Assessment & Plan - Assessment and Plan (Free Text) Assessment: 83 M w/ PMhx of CABG, HTN, DM, admitted w/ chest pain, currently having elevated troponins (9.35, tending currently) w/ no ST elevations, started on heparin drip, plavix, aspirin. 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 Dr. Odom has accepted, awaiting bed placement. Patient currently asymptomatic. Plan: Neuro - A&Ox 3 Cardio - hx of CABG, HTN, CAD, DM - c/w heparin drip, plavix, aspirin - c/w HTN meds metoprolol tartarte 12.5 mg PO BID, HCTZ 25 mg PO daily, Cozaar 100 mg PO daily - c/w rosuvastatin 20 mg PO HS - continue to follow ROMIs Pulm - saturating well, no SOB noted - will continue to monitor GI - heart healthy diet - C diff negative (pt reports previous diarrhea prior to admission) - voiding freely, no need for fernández - will continue to monitor Renal - BUN/Cr WNL - continue to monitor Endo - hx of diabetes - ISS ACHS - Accuchecks ACHS - hypoglycemia protocol - TSH/Free T4 WNL - HgA1C 6.6 Heme - H/H WNL - WBC elevated @ 13 - afebrile - will continue to monitor; likely reactive to chest pain PPX - GI: Pepcid 20 mg PO daily - DVT: SCDs, on heparin drip <Chavez Feng S - Last Filed: 10/15/18 18:20> Meds - Medications Medications: Current Medications Aspirin (Aspirin Chewable) 81 mg PO DAILY [facility] Last Admin: 10/15/18 10:11 Dose: 81 mg Clopidogrel Bisulfate (Plavix) 75 mg PO DAILY [facility] Last Admin: 10/15/18 10:11 Dose: Not Given Famotidine (Pepcid) 20 mg PO DAILY [facility] Hydrochlorothiazide (Hydrodiuril) 25 mg PO DAILY [facility] Last Admin: 10/15/18 10:10 Dose: 25 mg Heparin Sodium/Sodium Chloride (Heparin 32863 Units/250ml 1/2 Normal Saline) 25,000 units in 250 mls @ 9.525 mls/hr IV .Q24H PRN; Protocol PRN Reason: PROTOCOL Last Admin: 10/15/18 01:09 Dose: 12 units/kg/hr, 9.525 mls/hr Insulin Human Regular (Novolin R) 0 unit SC [facility]; Protocol Last Admin: 10/15/18 17:06 Dose: Not Given Lidocaine (Lidoderm) 1 ea TD ONCE ONE Stop: 10/15/18 22:37 Losartan Potassium (Cozaar) 100 mg PO DAILY [facility] Last Admin: 10/15/18 10:09 Dose: 100 mg Metoprolol Tartrate (Lopressor) 12.5 mg PO BID [facility] Last Admin: 10/15/18 17:50 Dose: 12.5 mg Rosuvastatin Calcium (Crestor) 20 mg PO [facility] Results - Vital Signs Recent Vital Signs: Last Vital Signs Temp 97.2 F L 10/15/18 08:50 Pulse 56 L 10/15/18 17:04 Resp 21 10/15/18 17:04 BP 130/63 10/15/18 17:04 Pulse Ox 98 10/15/18 17:04 - Labs Result Diagrams: 10/15/18 06:42 10/15/18 06:42 Labs: Laboratory Results - last 24 hr 10/14/18 10/14/18 10/15/18 21:29 22:27 01:35 WBC RBC Hgb Hct MCV MCH MCHC RDW Plt Count MPV Neut % (Auto) Lymph % (Auto) Barron % (Auto) Eos % (Auto) Baso % (Auto) Neut # (Auto) Lymph # (Auto) Barron # (Auto) Eos # (Auto) Baso # (Auto) APTT Sodium Potassium Chloride Carbon Dioxide Anion Gap BUN Creatinine Est GFR ( Amer) Est GFR (Non-Af Amer) POC Glucose (mg/dL) 196 H Random Glucose Hemoglobin A1c Calcium Phosphorus Magnesium Total Bilirubin AST ALT Alkaline Phosphatase Total Creatine Kinase 98 CK-MB (Mass) 9.76 H Troponin I 1.5500 H* Total Protein Albumin Globulin Albumin/Globulin Ratio Vitamin B12 Free T4 TSH 3rd Generation Urine Color Kristen Urine Clarity Hazy Urine pH 5.0 Ur Specific Nemo 1.019 Urine Protein 1+ H Urine Glucose (UA) Normal Urine Ketones Negative Urine Blood Negative Urine Nitrate Negative Urine Bilirubin Negative Urine Urobilinogen Normal Ur Leukocyte Esterase Neg Urine WBC (Auto) 4 Urine RBC (Auto) 21 H Ur Squamous Epith Cells < 1 Urine Bacteria Rare Hyaline Casts 3-5 H C. difficile Ag & Toxin 10/15/18 10/15/18 10/15/18 06:42 06:42 06:42 WBC 13.1 H RBC 4.00 L Hgb 11.3 L Hct 33.3 L MCV 83.3 MCH 28.2 MCHC 33.8 RDW 13.8 Plt Count 228 MPV 9.4 Neut % (Auto) 78.7 H Lymph % (Auto) 11.7 L Barron % (Auto) 7.3 Eos % (Auto) 2.3 Baso % (Auto) 0.0 Neut # (Auto) 10.3 H Lymph # (Auto) 1.5 Barron # (Auto) 0.9 H Eos # (Auto) 0.3 Baso # (Auto) 0.0 APTT Sodium 131 L Potassium 3.6 Chloride 96 L Carbon Dioxide 27 Anion Gap 12 BUN 12 Creatinine 0.9 Est GFR ( Amer) > 60 Est GFR (Non-Af Amer) > 60 POC Glucose (mg/dL) Random Glucose 157 H Hemoglobin A1c Calcium 8.9 Phosphorus 3.4 Magnesium 1.7 Total Bilirubin 0.4 AST 61 H D ALT 25 Alkaline Phosphatase 83 Total Creatine Kinase 185 H CK-MB (Mass) 23.6 H Troponin I 9.3400 H* Total Protein 6.4 Albumin 3.7 Globulin 2.7 Albumin/Globulin Ratio 1.4 Vitamin B12 910 Free T4 1.32 TSH 3rd Generation 1.85 Urine Color Urine Clarity Urine pH Ur Specific Nemo Urine Protein Urine Glucose (UA) Urine Ketones Urine Blood Urine Nitrate Urine Bilirubin Urine Urobilinogen Ur Leukocyte Esterase Urine WBC (Auto) Urine RBC (Auto) Ur Squamous Epith Cells Urine Bacteria Hyaline Casts C. difficile Ag & Toxin 10/15/18 10/15/18 10/15/18 06:42 06:42 11:36 WBC RBC Hgb Hct MCV MCH MCHC RDW Plt Count MPV Neut % (Auto) Lymph % (Auto) Barron % (Auto) Eos % (Auto) Baso % (Auto) Neut # (Auto) Lymph # (Auto) Barron # (Auto) Eos # (Auto) Baso # (Auto) APTT 47 H D Sodium Potassium Chloride Carbon Dioxide Anion Gap BUN Creatinine Est GFR ( Amer) Est GFR (Non-Af Amer) POC Glucose (mg/dL) 151 H Random Glucose Hemoglobin A1c 6.6 H Calcium Phosphorus Magnesium Total Bilirubin AST ALT Alkaline Phosphatase Total Creatine Kinase CK-MB (Mass) Troponin I Total Protein Albumin Globulin Albumin/Globulin Ratio Vitamin B12 Free T4 TSH 3rd Generation Urine Color Urine Clarity Urine pH Ur Specific Nemo Urine Protein Urine Glucose (UA) Urine Ketones Urine Blood Urine Nitrate Urine Bilirubin Urine Urobilinogen Ur Leukocyte Esterase Urine WBC (Auto) Urine RBC (Auto) Ur Squamous Epith Cells Urine Bacteria Hyaline Casts C. difficile Ag & Toxin 10/15/18 10/15/18 10/15/18 12:11 13:56 16:17 WBC RBC Hgb Hct MCV MCH MCHC RDW Plt Count MPV Neut % (Auto) Lymph % (Auto) Barron % (Auto) Eos % (Auto) Baso % (Auto) Neut # (Auto) Lymph # (Auto) Barron # (Auto) Eos # (Auto) Baso # (Auto) APTT Sodium Potassium Chloride Carbon Dioxide Anion Gap BUN Creatinine Est GFR ( Amer) Est GFR (Non-Af Amer) POC Glucose (mg/dL) 142 H Random Glucose Hemoglobin A1c Calcium Phosphorus Magnesium Total Bilirubin AST ALT Alkaline Phosphatase Total Creatine Kinase 124 CK-MB (Mass) 15.6 H Troponin I 9.0400 H* Total Protein Albumin Globulin Albumin/Globulin Ratio Vitamin B12 Free T4 TSH 3rd Generation Urine Color Urine Clarity Urine pH Ur Specific Nemo Urine Protein Urine Glucose (UA) Urine Ketones Urine Blood Urine Nitrate Urine Bilirubin Urine Urobilinogen Ur Leukocyte Esterase Urine WBC (Auto) Urine RBC (Auto) Ur Squamous Epith Cells Urine Bacteria Hyaline Casts C. difficile Ag & Toxin Negative Attending/Attestation - Attestation I have personally seen and examined this patient.: Yes I have fully participated in the care of the patient.: Yes I have reviewed all pertinent clinical information: Yes Notes (Text): 10/15/18 18:19 Patient seen and examined 83-year-old male with history of CABG admitted for presyncope and found to have elevated troponin consistent with non-ST elevation HI Patient to be transferred to [facility] Continue heparin Continue present meds
--- NOTE | 2018-10-15 12:12 | CARD ---
APPROVED REPORT Date of service: 10/14/2018 EKG Measurement Heart [id number] ID [id number] <Conclusion> Normal sinus rhythm Nonspecific ST abnormality Abnormal ECG
--- NOTE | 2018-10-15 12:12 | CARD ---
APPROVED REPORT Date of service: 10/14/2018 EKG Measurement Heart [id number] CT [id number] <Conclusion> Normal sinus rhythm with sinus arrhythmia Normal ECG
--- NOTE | 2018-10-15 14:08 | CARD ---
APPROVED REPORT Date of service: 10/15/2018 EXAM: Two-dimensional and M-mode echocardiogram with Doppler and color Doppler. INDICATION Dyspnea Chest Pain Palpitations FEVER, CAD, CABG RISK FACTORS Hypertension Diabetes 2D DIMENSIONS IVSd1.1 (0.7-1.1cm)LVDd5.0 (3.9-5.9cm) PWd1.2 (0.7-1.1cm)LA Xusmoh21 (18-58mL) LVDs3.5 (2.5-4.0cm)FS (%) 30.7 % LVEF (%)58.1 (>50%)LVEF ([facility])65.10 % M-Mode DIMENSIONS Left Atrium (MM)4.59 (2.5-4.0cm)IVSd0.98 (0.7-1.1cm) Aortic Root3.32 (2.2-3.7cm)LVDd5.66 (4.0-5.6cm) Aortic Cusp Exc.1.64 (1.5-2.0cm)PWd0.81 (0.7-1.1cm) FS (%) 28 %LVDs4.06 (2.0-3.8cm) LVEF (%)54 (>50%) Mitral Valve MV E Xxcryrfj68.8cm/sMV A Vlkdqtwy975.5cm/sE/A ratio0.8 TDI Lateral E' Peak V5.51cm/sMedial E' Peak V4.03cm/sE/Lateral E'18.1 E/Medial E'24.8 Tricuspid Valve TR Peak [id number]/sTR Peak [id number] LEFT VENTRICLE The left ventricle is normal size. There is normal left ventricular wall thickness. The Ejection Fraction is 55-60%. There is normal LV segmental wall motion. Transmitral Doppler flow pattern is Grade I-abnormal relaxation pattern. The left atrial pressure is mildly elevated. RIGHT VENTRICLE The right ventricle is normal size. The right ventricular systolic function is normal. ATRIA The left atrium is moderately dilated. The right atrium size is normal. The interatrial septum is intact with no evidence for an atrial septal defect. AORTIC VALVE The aortic valve is mildly sclerotic. The aortic valve is trileaflet. There is mild aortic regurgitation. MITRAL VALVE The mitral valve is thickened but opens well. Mitral regurgitation is mild. TRICUSPID VALVE The tricuspid valve is normal in structure. There is mild tricuspid regurgitation. Right ventricular systolic pressure is estimated at 28 mmHg. There is no pulmonary hypertension. PULMONIC VALVE The pulmonary valve is normal in structure. There is mild pulmonic valvular regurgitation. GREAT VESSELS The aortic root is normal in size. The IVC is normal in size and collapses >50% with inspiration. PERICARDIAL EFFUSION There is no pericardial effusion. <Conclusion> The left ventricle is normal size. The Ejection Fraction is 55-60%. Transmitral Doppler flow pattern is Grade I-abnormal relaxation pattern. The left atrial pressure is mildly elevated. The left atrium is moderately dilated. There is mild aortic regurgitation. Mitral regurgitation is mild. There is mild tricuspid regurgitation. Right ventricular systolic pressure is estimated at 28 mmHg. There is no pulmonary hypertension. The aortic root is normal in size. There is no pericardial effusion.
--- NOTE | 2018-10-15 14:54 | CP.PCM.CON ---
History of Present Illness - History of Present Illness History of Present Illness: The pt is an 83 yo man who has had a cabg in 2002. Pt had syncope in 2014, admitted to [facility] and beta meagan was stopped. Pt had a c cath at [facility] in 2017, told all was well. pt was teaching a course, felt light headed, right sided chest pain, and wanted to go home, but the students called 911. pt admitted here for unstable angina, but TNi increase to 9, ECg no sig st changes.pt is pain free now. Review of Systems - Review of Systems All systems: reviewed and no additional remarkable complaints except (as above) Past Patient History - Past Social History Smoking Status: Never Smoked - CARDIAC Hx Hypertension: Yes - ENDOCRINE/METABOLIC Hx Diabetes Mellitus Type 2: Yes - PSYCHIATRIC Hx Substance Use: No - SURGICAL HISTORY Hx Coronary Artery Bypass Graft: Yes Meds Allergies/Adverse Reactions: Allergies Allergy/AdvReac Type Severity Reaction Status Date / Time No Known Allergies Allergy Verified 10/14/18 15:32 - Medications Medications: Current Medications Aspirin (Aspirin Chewable) 81 mg PO DAILY [facility] Last Admin: 10/15/18 10:11 Dose: 81 mg Clopidogrel Bisulfate (Plavix) 75 mg PO DAILY [facility] Last Admin: 10/15/18 10:11 Dose: Not Given Hydrochlorothiazide (Hydrodiuril) 25 mg PO DAILY [facility] Last Admin: 10/15/18 10:10 Dose: 25 mg Heparin Sodium/Sodium Chloride (Heparin 83599 Units/250ml 1/2 Normal Saline) 25,000 units in 250 mls @ 9.525 mls/hr IV .Q24H PRN; Protocol PRN Reason: PROTOCOL Last Admin: 10/15/18 01:09 Dose: 12 units/kg/hr, 9.525 mls/hr Insulin Human Regular (Novolin R) 0 unit SC ACHS [facility]; Protocol Last Admin: 10/15/18 12:12 Dose: 2 units Lidocaine (Lidoderm) 1 ea TD ONCE ONE Stop: 10/15/18 22:37 Losartan Potassium (Cozaar) 100 mg PO DAILY [facility] Last Admin: 10/15/18 10:09 Dose: 100 mg Metoprolol Tartrate (Lopressor) 12.5 mg PO BID [facility] Last Admin: 10/15/18 10:10 Dose: 12.5 mg Rosuvastatin Calcium (Crestor) 20 mg PO HS SHAD Physical Exam - Head Exam Head Exam: ATRAUMATIC - Eye Exam Eye Exam: EOMI Pupil Exam: NORMAL ACCOMODATION - ENT Exam ENT Exam: Mucous Membranes Dry - Respiratory Exam Respiratory Exam: Clear to Auscultation Bilateral - Cardiovascular Exam Cardiovascular Exam: REGULAR RHYTHM - Rectal Exam Rectal Exam: NORMAL INSPECTION - Exam External exam: NORMAL EXTERNAL EXAM - Extremities Exam Extremities exam: Positive for: normal inspection - Back Exam Back exam: NORMAL INSPECTION - Skin Skin Exam: Normal Color Results - Vital Signs Recent Vital Signs: Last Vital Signs Temp 97.2 F L 10/15/18 08:50 Pulse 77 10/15/18 14:00 Resp 15 10/15/18 14:00 BP 139/49 L 10/15/18 12:53 Pulse Ox 97 10/15/18 08:50 - Labs Result Diagrams: 10/15/18 06:42 10/15/18 06:42 Labs: Laboratory Results - last 24 hr 10/14/18 10/14/18 10/14/18 16:12 16:12 16:12 WBC 14.7 H RBC 4.29 L Hgb 11.8 L Hct 35.9 MCV 83.8 MCH 27.5 MCHC 32.8 L RDW 14.0 Plt Count 247 MPV 8.9 Neut % (Auto) 85.5 H Lymph % (Auto) 7.2 L Rock % (Auto) 6.1 Eos % (Auto) 1.1 Baso % (Auto) 0.1 Neut # (Auto) 12.6 H Lymph # (Auto) 1.1 Rock # (Auto) 0.9 H Eos # (Auto) 0.2 Baso # (Auto) 0.0 Neutrophils % (Manual) 88 H Lymphocytes % (Manual) 5 L Monocytes % (Manual) 5 Eosinophils % (Manual) 2 Platelet Estimate Normal Microcytosis (manual) Slight Rouleaux Slight PT 12.5 H INR 1.1 APTT 28 Sodium 133 Potassium 4.0 Chloride 96 L Carbon Dioxide 27 Anion Gap 14 BUN 12 Creatinine 1.1 Est GFR ( Amer) > 60 Est GFR (Non-Af Amer) > 60 POC Glucose (mg/dL) Random Glucose 190 H Hemoglobin A1c Calcium 9.2 Phosphorus Magnesium Total Bilirubin 0.7 AST 20 ALT 22 Alkaline Phosphatase 72 Total Creatine Kinase CK-MB (Mass) Troponin I < 0.0120 Total Protein 6.8 Albumin 4.0 Globulin 2.8 Albumin/Globulin Ratio 1.4 Vitamin B12 Free T4 TSH 3rd Generation Urine Color Urine Clarity Urine pH Ur Specific Rudyard Urine Protein Urine Glucose (UA) Urine Ketones Urine Blood Urine Nitrate Urine Bilirubin Urine Urobilinogen Ur Leukocyte Esterase Urine WBC (Auto) Urine RBC (Auto) Ur Squamous Epith Cells Urine Bacteria Hyaline Casts 10/14/18 10/14/18 10/15/18 21:29 22:27 01:35 WBC RBC Hgb Hct MCV MCH MCHC RDW Plt Count MPV Neut % (Auto) Lymph % (Auto) Rock % (Auto) Eos % (Auto) Baso % (Auto) Neut # (Auto) Lymph # (Auto) Rock # (Auto) Eos # (Auto) Baso # (Auto) Neutrophils % (Manual) Lymphocytes % (Manual) Monocytes % (Manual) Eosinophils % (Manual) Platelet Estimate Microcytosis (manual) Rouleaux PT INR APTT Sodium Potassium Chloride Carbon Dioxide Anion Gap BUN Creatinine Est GFR ( Amer) Est GFR (Non-Af Amer) POC Glucose (mg/dL) 196 H Random Glucose Hemoglobin A1c Calcium Phosphorus Magnesium Total Bilirubin AST ALT Alkaline Phosphatase Total Creatine Kinase 98 CK-MB (Mass) 9.76 H Troponin I 1.5500 H* Total Protein Albumin Globulin Albumin/Globulin Ratio Vitamin B12 Free T4 TSH 3rd Generation Urine Color Kristen Urine Clarity Hazy Urine pH 5.0 Ur Specific Rudyard 1.019 Urine Protein 1+ H Urine Glucose (UA) Normal Urine Ketones Negative Urine Blood Negative Urine Nitrate Negative Urine Bilirubin Negative Urine Urobilinogen Normal Ur Leukocyte Esterase Neg Urine WBC (Auto) 4 Urine RBC (Auto) 21 H Ur Squamous Epith Cells < 1 Urine Bacteria Rare Hyaline Casts 3-5 H 10/15/18 10/15/18 10/15/18 06:42 06:42 06:42 WBC 13.1 H RBC 4.00 L Hgb 11.3 L Hct 33.3 L MCV 83.3 MCH 28.2 MCHC 33.8 RDW 13.8 Plt Count 228 MPV 9.4 Neut % (Auto) 78.7 H Lymph % (Auto) 11.7 L Rock % (Auto) 7.3 Eos % (Auto) 2.3 Baso % (Auto) 0.0 Neut # (Auto) 10.3 H Lymph # (Auto) 1.5 Rock # (Auto) 0.9 H Eos # (Auto) 0.3 Baso # (Auto) 0.0 Neutrophils % (Manual) Lymphocytes % (Manual) Monocytes % (Manual) Eosinophils % (Manual) Platelet Estimate Microcytosis (manual) Rouleaux PT INR APTT Sodium 131 L Potassium 3.6 Chloride 96 L Carbon Dioxide 27 Anion Gap 12 BUN 12 Creatinine 0.9 Est GFR ( Amer) > 60 Est GFR (Non-Af Amer) > 60 POC Glucose (mg/dL) Random Glucose 157 H Hemoglobin A1c Calcium 8.9 Phosphorus 3.4 Magnesium 1.7 Total Bilirubin 0.4 AST 61 H D ALT 25 Alkaline Phosphatase 83 Total Creatine Kinase 185 H CK-MB (Mass) 23.6 H Troponin I 9.3400 H* Total Protein 6.4 Albumin 3.7 Globulin 2.7 Albumin/Globulin Ratio 1.4 Vitamin B12 910 Free T4 1.32 TSH 3rd Generation 1.85 Urine Color Urine Clarity Urine pH Ur Specific Rudyard Urine Protein Urine Glucose (UA) Urine Ketones Urine Blood Urine Nitrate Urine Bilirubin Urine Urobilinogen Ur Leukocyte Esterase Urine WBC (Auto) Urine RBC (Auto) Ur Squamous Epith Cells Urine Bacteria Hyaline Casts 10/15/18 10/15/18 10/15/18 06:42 06:42 11:36 WBC RBC Hgb Hct MCV MCH MCHC RDW Plt Count MPV Neut % (Auto) Lymph % (Auto) Rock % (Auto) Eos % (Auto) Baso % (Auto) Neut # (Auto) Lymph # (Auto) Rock # (Auto) Eos # (Auto) Baso # (Auto) Neutrophils % (Manual) Lymphocytes % (Manual) Monocytes % (Manual) Eosinophils % (Manual) Platelet Estimate Microcytosis (manual) Rouleaux PT INR APTT 47 H D Sodium Potassium Chloride Carbon Dioxide Anion Gap BUN Creatinine Est GFR ( Amer) Est GFR (Non-Af Amer) POC Glucose (mg/dL) 151 H Random Glucose Hemoglobin A1c 6.6 H Calcium Phosphorus Magnesium Total Bilirubin AST ALT Alkaline Phosphatase Total Creatine Kinase CK-MB (Mass) Troponin I Total Protein Albumin Globulin Albumin/Globulin Ratio Vitamin B12 Free T4 TSH 3rd Generation Urine Color Urine Clarity Urine pH Ur Specific Rudyard Urine Protein Urine Glucose (UA) Urine Ketones Urine Blood Urine Nitrate Urine Bilirubin Urine Urobilinogen Ur Leukocyte Esterase Urine WBC (Auto) Urine RBC (Auto) Ur Squamous Epith Cells Urine Bacteria Hyaline Casts - EKG Data EKG Interpreted by: Myself EKG shows normal: Sinus rhythm Rate: Normal - EKG Data When Compared to Previous EKG: No Significant Change Assessment & Plan - Assessment and Plan (Free Text) Assessment: 1. pt has non stemi: Killip class one, Echo shows borderline Lv EF, with septal hypokinesis, normal doppler. asa. 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
[2018-10-15 15:24] LABS: CK-MB 15.6 ng/mL (0.0-3.38); TROPONIN I 9.04 ng/mL (0.00-0.120)
[2018-10-15 18:51] LABS: CK-MB 12.4 ng/mL (0.0-3.38); TROPONIN I 6.92 ng/mL (0.00-0.120)
[2018-10-15] MEDS ORDERED: Lidocaine 5% Patch TD ONE (22:36)
[2018-10-16 01:45] LABS: TROPONIN I 3.43 ng/mL (0.00-0.120)
[2018-10-16 01:46] LABS: CK-MB 5.79 ng/mL (0.0-3.38)
[2018-10-16 06:25] LABS: BASO # 0.1 K/uL (0.0-0.2); BASO % 0.6 % (0.0-2.0); EOS # 0.3 K/uL (0.0-0.7); EOS % 2.7 % (0.0-4.0); HEMOGLOBIN 11.6 g/dL (12.0-18.0); LYMPH # 1.8 K/uL (1.0-4.3); LYMPH % 16.6 % (20.0-40.0); MEAN CELL VOLUME 83.6 fL (80.0-94.0); MEAN CORPUSCULAR HEMOGLOBIN 28.7 pg (27.0-31.0); MEAN CORPUSCULAR HGB CONC 34.3 g/dL (33.0-37.0); MEAN PLATELET VOLUME 9.3 fL (7.2-11.7); MONO # 1.1 K/uL (0.0-0.8); MONO % 9.7 % (0.0-10.0); NEUT # 7.7 K/uL (1.8-7.0); NEUT % 70.4 % (50.0-75.0); RBC 4.06 Mil/uL (4.40-5.90); RED CELL DISTRIBUTION WIDTH 13.6 % (11.5-14.5); WHITE BLOOD COUNT 10.9 K/uL (4.8-10.8)
[2018-10-16 06:39] LABS: ALB/GLOB RATIO 1.3 (1.0-2.1); ALBUMIN 3.9 g/dL (3.5-5.0); ALT/SGPT 24 U/L (21-72); AST/SGOT 56 U/L (17-59); BLOOD UREA NITROGEN 12 mg/dL (9-20); CALCIUM 8.6 mg/dl (8.6-10.4); GFR NON-AFRICAN AMERICAN > 60
--- NOTE | 2018-10-16 07:17 | CP.CCUPN ---
<Anthony Shrestha M - Last Filed: 10/16/18 13:03> CCU Subjective - Physician Review Subjective (Free Text): Critical care progress note for Dr. Michell Falcon Patient seen and examined at bedside. No overnight events reported. Patient is currently asymptomatic. Denies headaches, vision changes, chest pain, SOB, cough, abdominal pain, nausea, vomiting. Pt is has downtrend of troponins and scheduled for [place] tomorrow w/ Dr. Adams Odom for cardiac cath. CCU Objective - Vital Signs / Intake & Output Vital Signs (Last 4 hours): Vital Signs Temp Pulse Resp BP Pulse Ox 10/16/18 06:34 69 19 126/39 L 10/16/18 05:59 64 13 119/41 L 95 10/16/18 05:00 65 12 145/56 L 97 10/16/18 04:00 98.4 F 10/16/18 03:59 136/69 Intake and Output (Last 8hrs): Intake & Output 10/15/18 10/16/18 10/16/18 22:59 06:59 14:59 Intake Total 576.0 176.0 Output Total 800 700 Balance -224.0 -524.0 Intake: Intake, IV Amount 76.0 76.0 left AC 76.0 76.0 Oral 500 100 Output: Urine 800 700 Urine, Voided 800 700 Other: # Voids Urine, Voided 0 0 # Bowel Movements 0 0 - Physical Exam Head: Positive for: Atraumatic, Normocephalic Pupils: Positive for: PERRL Extroacular Muscles: Positive for: EOMI Conjunctiva: Positive for: Normal Mouth: Positive for: Moist Mucous Membranes Neck: Positive for: Normal Range of Motion Respiratory/Chest: Positive for: Clear to Auscultation, Good Air Exchange. Negative for: Accessory Muscle Use, Wheezes Cardiovascular: Positive for: Normal S1, S2 Abdomen: Negative for: Tenderness, Distention, Feeding Tubes Upper Extremity: Positive for: Normal Inspection. Negative for: Cyanosis, Edema Lower Extremity: Positive for: Normal Inspection. Negative for: Edema Skin: Positive for: Warm, Dry, Rashes Psychiatric: Positive for: Alert, Oriented x 3 - Medications Active Medications: Active Medications Generic Name Dose Route Start Last Admin Trade Name Freq PRN Reason Stop Dose Admin Aspirin 81 mg 10/15/18 10:00 10/15/18 10:11 Aspirin Chewable PO 81 mg DAILY SHAD Administration Clopidogrel Bisulfate 75 mg 10/15/18 10:00 10/15/18 10:11 Plavix PO Not Given DAILY SHAD Famotidine 20 mg 10/16/18 10:00 Pepcid PO DAILY [facility] Hydrochlorothiazide 25 mg 10/15/18 10:00 10/15/18 10:10 Hydrodiuril PO 25 mg DAILY SHAD Administration Heparin Sodium/Sodium Chloride 25,000 units in 250 mls @ 9.525 mls/hr 10/14/18 23:49 10/15/18 01:09 Heparin 70387 Units/250ml 1/2 Normal Saline IV 12 units/kg/hr .Q24H PRN 9.525 mls/hr PROTOCOL Administration Protocol 12 UNITS/KG/HR Insulin Human Regular 0 unit 10/14/18 22:00 10/15/18 22:00 Novolin R SC Not Given ACHS [facility] Protocol Losartan Potassium 100 mg 10/15/18 10:00 10/15/18 10:09 Cozaar PO 100 mg DAILY SHAD Administration Metoprolol Tartrate 12.5 mg 10/15/18 00:53 10/15/18 17:50 Lopressor PO 12.5 mg BID SHAD Administration Rosuvastatin Calcium 20 mg 10/15/18 22:00 10/15/18 21:57 Crestor PO 20 mg HS SHAD Administration - Patient Studies Lab Studies: Microbiology Studies 10/14/18 22:27 Blood Culture - Preliminary Blood NO GROWTH AFTER 24 HOURS 10/14/18 22:27 Blood Culture - Preliminary Blood NO GROWTH AFTER 24 HOURS Lab Studies 10/16/18 10/16/18 10/16/18 Range/Units 06:12 06:12 06:10 WBC (4.8-10.8) K/uL RBC (4.40-5.90) Mil/uL Hgb (12.0-18.0) g/dL Hct (35.0-51.0) % MCV (80.0-94.0) fL MCH (27.0-31.0) pg MCHC (33.0-37.0) g/dL RDW (11.5-14.5) % Plt Count (130-400) K/uL MPV (7.2-11.7) fL Neut % (Auto) (50.0-75.0) % Lymph % (Auto) (20.0-40.0) % Jennings % (Auto) (0.0-10.0) % Eos % (Auto) (0.0-4.0) % Baso % (Auto) (0.0-2.0) % Neut # (Auto) (1.8-7.0) K/uL Lymph # (Auto) (1.0-4.3) K/uL Jennings # (Auto) (0.0-0.8) K/uL Eos # (Auto) (0.0-0.7) K/uL Baso # (Auto) (0.0-0.2) K/uL APTT 62 H (21-34) SECONDS Sodium 132 (132-148) mmol/L Potassium 4.0 (3.6-5.2) mmol/L Chloride 98 (98-107) mmol/L Carbon Dioxide 27 (22-30) mmol/L Anion Gap 12 (10-20) BUN 12 (9-20) mg/dL Creatinine 0.8 (0.8-1.5) mg/dL Est GFR ( Amer) > 60 Est GFR (Non-Af Amer) > 60 POC Glucose (mg/dL) (65-110) mg/dL Random Glucose 131 H (75-110) mg/dL Hemoglobin A1c (4.2-6.5) % Calcium 8.6 (8.6-10.4) mg/dl Phosphorus 3.6 (2.5-4.5) mg/dL Magnesium 1.8 (1.6-2.3) mg/dL Total Bilirubin 0.5 (0.2-1.3) mg/dL AST 56 (17-59) U/L ALT 24 (21-72) U/L Alkaline Phosphatase 65 (38-126) U/L Total Creatine Kinase (55-170) U/L CK-MB (Mass) (0.0-3.38) ng/mL Troponin I (0.00-0.120) ng/mL Total Protein 6.8 (6.3-8.3) g/dL Albumin 3.9 (3.5-5.0) g/dL Globulin 3.0 (2.2-3.9) gm/dL Albumin/Globulin Ratio 1.3 (1.0-2.1) Vitamin B12 (239-931) pg/mL Free T4 (0.78-2.19) ng/dL TSH 3rd Generation (0.46-4.68) mIU/L Stool Leukocytes, Qual (NEGATIVE) C. difficile Ag & Toxin (NEGATIVE) 10/16/18 10/16/18 10/15/18 Range/Units 06:09 00:58 21:15 WBC 10.9 H (4.8-10.8) K/uL RBC 4.06 L (4.40-5.90) Mil/uL Hgb 11.6 L (12.0-18.0) g/dL Hct 33.9 L (35.0-51.0) % MCV 83.6 (80.0-94.0) fL MCH 28.7 (27.0-31.0) pg MCHC 34.3 (33.0-37.0) g/dL RDW 13.6 (11.5-14.5) % Plt Count 223 (130-400) K/uL MPV 9.3 (7.2-11.7) fL Neut % (Auto) 70.4 (50.0-75.0) % Lymph % (Auto) 16.6 L (20.0-40.0) % Jennings % (Auto) 9.7 (0.0-10.0) % Eos % (Auto) 2.7 (0.0-4.0) % Baso % (Auto) 0.6 (0.0-2.0) % Neut # (Auto) 7.7 H (1.8-7.0) K/uL Lymph # (Auto) 1.8 (1.0-4.3) K/uL Jennings # (Auto) 1.1 H (0.0-0.8) K/uL Eos # (Auto) 0.3 (0.0-0.7) K/uL Baso # (Auto) 0.1 (0.0-0.2) K/uL APTT 61 H D (21-34) SECONDS Sodium (132-148) mmol/L Potassium (3.6-5.2) mmol/L Chloride (98-107) mmol/L Carbon Dioxide (22-30) mmol/L Anion Gap (10-20) BUN (9-20) mg/dL Creatinine (0.8-1.5) mg/dL Est GFR ( Amer) Est GFR (Non-Af Amer) POC Glucose (mg/dL) (65-110) mg/dL Random Glucose (75-110) mg/dL Hemoglobin A1c (4.2-6.5) % Calcium (8.6-10.4) mg/dl Phosphorus (2.5-4.5) mg/dL Magnesium (1.6-2.3) mg/dL Total Bilirubin (0.2-1.3) mg/dL AST (17-59) U/L ALT (21-72) U/L Alkaline Phosphatase (38-126) U/L Total Creatine Kinase 56 (55-170) U/L CK-MB (Mass) 5.79 H (0.0-3.38) ng/mL Troponin I 3.4300 H* (0.00-0.120) ng/mL Total Protein (6.3-8.3) g/dL Albumin (3.5-5.0) g/dL Globulin (2.2-3.9) gm/dL Albumin/Globulin Ratio (1.0-2.1) Vitamin B12 (239-931) pg/mL Free T4 (0.78-2.19) ng/dL TSH 3rd Generation (0.46-4.68) mIU/L Stool Leukocytes, Qual (NEGATIVE) C. difficile Ag & Toxin (NEGATIVE) 10/15/18 10/15/18 10/15/18 Range/Units 20:55 18:18 16:17 WBC (4.8-10.8) K/uL RBC (4.40-5.90) Mil/uL Hgb (12.0-18.0) g/dL Hct (35.0-51.0) % MCV (80.0-94.0) fL MCH (27.0-31.0) pg MCHC (33.0-37.0) g/dL RDW (11.5-14.5) % Plt Count (130-400) K/uL MPV (7.2-11.7) fL Neut % (Auto) (50.0-75.0) % Lymph % (Auto) (20.0-40.0) % Jennings % (Auto) (0.0-10.0) % Eos % (Auto) (0.0-4.0) % Baso % (Auto) (0.0-2.0) % Neut # (Auto) (1.8-7.0) K/uL Lymph # (Auto) (1.0-4.3) K/uL Jennings # (Auto) (0.0-0.8) K/uL Eos # (Auto) (0.0-0.7) K/uL Baso # (Auto) (0.0-0.2) K/uL APTT (21-34) SECONDS Sodium (132-148) mmol/L Potassium (3.6-5.2) mmol/L Chloride (98-107) mmol/L Carbon Dioxide (22-30) mmol/L Anion Gap (10-20) BUN (9-20) mg/dL Creatinine (0.8-1.5) mg/dL Est GFR ( Amer) Est GFR (Non-Af Amer) POC Glucose (mg/dL) 168 H 142 H (65-110) mg/dL Random Glucose (75-110) mg/dL Hemoglobin A1c (4.2-6.5) % Calcium (8.6-10.4) mg/dl Phosphorus (2.5-4.5) mg/dL Magnesium (1.6-2.3) mg/dL Total Bilirubin (0.2-1.3) mg/dL AST (17-59) U/L ALT (21-72) U/L Alkaline Phosphatase (38-126) U/L Total Creatine Kinase 119 (55-170) U/L CK-MB (Mass) 12.4 H (0.0-3.38) ng/mL Troponin I 6.9200 H* (0.00-0.120) ng/mL Total Protein (6.3-8.3) g/dL Albumin (3.5-5.0) g/dL Globulin (2.2-3.9) gm/dL Albumin/Globulin Ratio (1.0-2.1) Vitamin B12 (239-931) pg/mL Free T4 (0.78-2.19) ng/dL TSH 3rd Generation (0.46-4.68) mIU/L Stool Leukocytes, Qual (NEGATIVE) C. difficile Ag & Toxin (NEGATIVE) 10/15/18 10/15/18 10/15/18 Range/Units 13:56 12:11 12:11 WBC (4.8-10.8) K/uL RBC (4.40-5.90) Mil/uL Hgb (12.0-18.0) g/dL Hct (35.0-51.0) % MCV (80.0-94.0) fL MCH (27.0-31.0) pg MCHC (33.0-37.0) g/dL RDW (11.5-14.5) % Plt Count (130-400) K/uL MPV (7.2-11.7) fL Neut % (Auto) (50.0-75.0) % Lymph % (Auto) (20.0-40.0) % Jennings % (Auto) (0.0-10.0) % Eos % (Auto) (0.0-4.0) % Baso % (Auto) (0.0-2.0) % Neut # (Auto) (1.8-7.0) K/uL Lymph # (Auto) (1.0-4.3) K/uL Jennings # (Auto) (0.0-0.8) K/uL Eos # (Auto) (0.0-0.7) K/uL Baso # (Auto) (0.0-0.2) K/uL APTT (21-34) SECONDS Sodium (132-148) mmol/L Potassium (3.6-5.2) mmol/L Chloride (98-107) mmol/L Carbon Dioxide (22-30) mmol/L Anion Gap (10-20) BUN (9-20) mg/dL Creatinine (0.8-1.5) mg/dL Est GFR ( Amer) Est GFR (Non-Af Amer) POC Glucose (mg/dL) (65-110) mg/dL Random Glucose (75-110) mg/dL Hemoglobin A1c (4.2-6.5) % Calcium (8.6-10.4) mg/dl Phosphorus (2.5-4.5) mg/dL Magnesium (1.6-2.3) mg/dL Total Bilirubin (0.2-1.3) mg/dL AST (17-59) U/L ALT (21-72) U/L Alkaline Phosphatase (38-126) U/L Total Creatine Kinase 124 (55-170) U/L CK-MB (Mass) 15.6 H (0.0-3.38) ng/mL Troponin I 9.0400 H* (0.00-0.120) ng/mL Total Protein (6.3-8.3) g/dL Albumin (3.5-5.0) g/dL Globulin (2.2-3.9) gm/dL Albumin/Globulin Ratio (1.0-2.1) Vitamin B12 (239-931) pg/mL Free T4 (0.78-2.19) ng/dL TSH 3rd Generation (0.46-4.68) mIU/L Stool Leukocytes, Qual Negative (NEGATIVE) C. difficile Ag & Toxin Negative (NEGATIVE) 10/15/18 10/15/18 10/15/18 Range/Units 11:36 06:42 06:42 WBC (4.8-10.8) K/uL RBC (4.40-5.90) Mil/uL Hgb (12.0-18.0) g/dL Hct (35.0-51.0) % MCV (80.0-94.0) fL MCH (27.0-31.0) pg MCHC (33.0-37.0) g/dL RDW (11.5-14.5) % Plt Count (130-400) K/uL MPV (7.2-11.7) fL Neut % (Auto) (50.0-75.0) % Lymph % (Auto) (20.0-40.0) % Jennings % (Auto) (0.0-10.0) % Eos % (Auto) (0.0-4.0) % Baso % (Auto) (0.0-2.0) % Neut # (Auto) (1.8-7.0) K/uL Lymph # (Auto) (1.0-4.3) K/uL Jennings # (Auto) (0.0-0.8) K/uL Eos # (Auto) (0.0-0.7) K/uL Baso # (Auto) (0.0-0.2) K/uL APTT 47 H D (21-34) SECONDS Sodium (132-148) mmol/L Potassium (3.6-5.2) mmol/L Chloride (98-107) mmol/L Carbon Dioxide (22-30) mmol/L Anion Gap (10-20) BUN (9-20) mg/dL Creatinine (0.8-1.5) mg/dL Est GFR ( Amer) Est GFR (Non-Af Amer) POC Glucose (mg/dL) 151 H (65-110) mg/dL Random Glucose (75-110) mg/dL Hemoglobin A1c 6.6 H (4.2-6.5) % Calcium (8.6-10.4) mg/dl Phosphorus (2.5-4.5) mg/dL Magnesium (1.6-2.3) mg/dL Total Bilirubin (0.2-1.3) mg/dL AST (17-59) U/L ALT (21-72) U/L Alkaline Phosphatase (38-126) U/L Total Creatine Kinase (55-170) U/L CK-MB (Mass) (0.0-3.38) ng/mL Troponin I (0.00-0.120) ng/mL Total Protein (6.3-8.3) g/dL Albumin (3.5-5.0) g/dL Globulin (2.2-3.9) gm/dL Albumin/Globulin Ratio (1.0-2.1) Vitamin B12 (239-931) pg/mL Free T4 (0.78-2.19) ng/dL TSH 3rd Generation (0.46-4.68) mIU/L Stool Leukocytes, Qual (NEGATIVE) C. difficile Ag & Toxin (NEGATIVE) 10/15/18 10/15/18 10/15/18 Range/Units 06:42 06:42 06:42 WBC 13.1 H (4.8-10.8) K/uL RBC 4.00 L (4.40-5.90) Mil/uL Hgb 11.3 L (12.0-18.0) g/dL Hct 33.3 L (35.0-51.0) % MCV 83.3 (80.0-94.0) fL MCH 28.2 (27.0-31.0) pg MCHC 33.8 (33.0-37.0) g/dL RDW 13.8 (11.5-14.5) % Plt Count 228 (130-400) K/uL MPV 9.4 (7.2-11.7) fL Neut % (Auto) 78.7 H (50.0-75.0) % Lymph % (Auto) 11.7 L (20.0-40.0) % Jennings % (Auto) 7.3 (0.0-10.0) % Eos % (Auto) 2.3 (0.0-4.0) % Baso % (Auto) 0.0 (0.0-2.0) % Neut # (Auto) 10.3 H (1.8-7.0) K/uL Lymph # (Auto) 1.5 (1.0-4.3) K/uL Jennings # (Auto) 0.9 H (0.0-0.8) K/uL Eos # (Auto) 0.3 (0.0-0.7) K/uL Baso # (Auto) 0.0 (0.0-0.2) K/uL APTT (21-34) SECONDS Sodium 131 L (132-148) mmol/L Potassium 3.6 (3.6-5.2) mmol/L Chloride 96 L (98-107) mmol/L Carbon Dioxide 27 (22-30) mmol/L Anion Gap 12 (10-20) BUN 12 (9-20) mg/dL Creatinine 0.9 (0.8-1.5) mg/dL Est GFR ( Amer) > 60 Est GFR (Non-Af Amer) > 60 POC Glucose (mg/dL) (65-110) mg/dL Random Glucose 157 H (75-110) mg/dL Hemoglobin A1c (4.2-6.5) % Calcium 8.9 (8.6-10.4) mg/dl Phosphorus 3.4 (2.5-4.5) mg/dL Magnesium 1.7 (1.6-2.3) mg/dL Total Bilirubin 0.4 (0.2-1.3) mg/dL AST 61 H D (17-59) U/L ALT 25 (21-72) U/L Alkaline Phosphatase 83 (38-126) U/L Total Creatine Kinase 185 H (55-170) U/L CK-MB (Mass) 23.6 H (0.0-3.38) ng/mL Troponin I 9.3400 H* (0.00-0.120) ng/mL Total Protein 6.4 (6.3-8.3) g/dL Albumin 3.7 (3.5-5.0) g/dL Globulin 2.7 (2.2-3.9) gm/dL Albumin/Globulin Ratio 1.4 (1.0-2.1) Vitamin B12 910 (239-931) pg/mL Free T4 1.32 (0.78-2.19) ng/dL TSH 3rd Generation 1.85 (0.46-4.68) mIU/L Stool Leukocytes, Qual (NEGATIVE) C. difficile Ag & Toxin (NEGATIVE) 10/15/18 Range/Units 06:39 WBC (4.8-10.8) K/uL RBC (4.40-5.90) Mil/uL Hgb (12.0-18.0) g/dL Hct (35.0-51.0) % MCV (80.0-94.0) fL MCH (27.0-31.0) pg MCHC (33.0-37.0) g/dL RDW (11.5-14.5) % Plt Count (130-400) K/uL MPV (7.2-11.7) fL Neut % (Auto) (50.0-75.0) % Lymph % (Auto) (20.0-40.0) % Jennings % (Auto) (0.0-10.0) % Eos % (Auto) (0.0-4.0) % Baso % (Auto) (0.0-2.0) % Neut # (Auto) (1.8-7.0) K/uL Lymph # (Auto) (1.0-4.3) K/uL Jennings # (Auto) (0.0-0.8) K/uL Eos # (Auto) (0.0-0.7) K/uL Baso # (Auto) (0.0-0.2) K/uL APTT (21-34) SECONDS Sodium (132-148) mmol/L Potassium (3.6-5.2) mmol/L Chloride (98-107) mmol/L Carbon Dioxide (22-30) mmol/L Anion Gap (10-20) BUN (9-20) mg/dL Creatinine (0.8-1.5) mg/dL Est GFR ( Amer) Est GFR (Non-Af Amer) POC Glucose (mg/dL) 165 H (65-110) mg/dL Random Glucose (75-110) mg/dL Hemoglobin A1c (4.2-6.5) % Calcium (8.6-10.4) mg/dl Phosphorus (2.5-4.5) mg/dL Magnesium (1.6-2.3) mg/dL Total Bilirubin (0.2-1.3) mg/dL AST (17-59) U/L ALT (21-72) U/L Alkaline Phosphatase (38-126) U/L Total Creatine Kinase (55-170) U/L CK-MB (Mass) (0.0-3.38) ng/mL Troponin I (0.00-0.120) ng/mL Total Protein (6.3-8.3) g/dL Albumin (3.5-5.0) g/dL Globulin (2.2-3.9) gm/dL Albumin/Globulin Ratio (1.0-2.1) Vitamin B12 (239-931) pg/mL Free T4 (0.78-2.19) ng/dL TSH 3rd Generation (0.46-4.68) mIU/L Stool Leukocytes, Qual (NEGATIVE) C. difficile Ag & Toxin (NEGATIVE) Laboratory Results - last 24 hr 10/15/18 10/15/18 10/15/18 06:39 06:42 06:42 WBC 13.1 H RBC 4.00 L Hgb 11.3 L Hct 33.3 L MCV 83.3 MCH 28.2 MCHC 33.8 RDW 13.8 Plt Count 228 MPV 9.4 Neut % (Auto) 78.7 H Lymph % (Auto) 11.7 L Jennings % (Auto) 7.3 Eos % (Auto) 2.3 Baso % (Auto) 0.0 Neut # (Auto) 10.3 H Lymph # (Auto) 1.5 Jennings # (Auto) 0.9 H Eos # (Auto) 0.3 Baso # (Auto) 0.0 APTT Sodium 131 L Potassium 3.6 Chloride 96 L Carbon Dioxide 27 Anion Gap 12 BUN 12 Creatinine 0.9 Est GFR ( Amer) > 60 Est GFR (Non-Af Amer) > 60 POC Glucose (mg/dL) 165 H Random Glucose 157 H Hemoglobin A1c Calcium 8.9 Phosphorus 3.4 Magnesium 1.7 Total Bilirubin 0.4 AST 61 H D ALT 25 Alkaline Phosphatase 83 Total Creatine Kinase 185 H CK-MB (Mass) 23.6 H Troponin I 9.3400 H* Total Protein 6.4 Albumin 3.7 Globulin 2.7 Albumin/Globulin Ratio 1.4 Vitamin B12 910 Free T4 TSH 3rd Generation 1.85 Stool Leukocytes, Qual C. difficile Ag & Toxin 10/15/18 10/15/18 10/15/18 06:42 06:42 06:42 WBC RBC Hgb Hct MCV MCH MCHC RDW Plt Count MPV Neut % (Auto) Lymph % (Auto) Jennings % (Auto) Eos % (Auto) Baso % (Auto) Neut # (Auto) Lymph # (Auto) Jennings # (Auto) Eos # (Auto) Baso # (Auto) APTT 47 H D Sodium Potassium Chloride Carbon Dioxide Anion Gap BUN Creatinine Est GFR ( Amer) Est GFR (Non-Af Amer) POC Glucose (mg/dL) Random Glucose Hemoglobin A1c 6.6 H Calcium Phosphorus Magnesium Total Bilirubin AST ALT Alkaline Phosphatase Total Creatine Kinase CK-MB (Mass) Troponin I Total Protein Albumin Globulin Albumin/Globulin Ratio Vitamin B12 Free T4 1.32 TSH 3rd Generation Stool Leukocytes, Qual C. difficile Ag & Toxin 10/15/18 10/15/18 10/15/18 11:36 12:11 12:11 WBC RBC Hgb Hct MCV MCH MCHC RDW Plt Count MPV Neut % (Auto) Lymph % (Auto) Jennings % (Auto) Eos % (Auto) Baso % (Auto) Neut # (Auto) Lymph # (Auto) Jennings # (Auto) Eos # (Auto) Baso # (Auto) APTT Sodium Potassium Chloride Carbon Dioxide Anion Gap BUN Creatinine Est GFR ( Amer) Est GFR (Non-Af Amer) POC Glucose (mg/dL) 151 H Random Glucose Hemoglobin A1c Calcium Phosphorus Magnesium Total Bilirubin AST ALT Alkaline Phosphatase Total Creatine Kinase CK-MB (Mass) Troponin I Total Protein Albumin Globulin Albumin/Globulin Ratio Vitamin B12 Free T4 TSH 3rd Generation Stool Leukocytes, Qual Negative C. difficile Ag & Toxin Negative 10/15/18 10/15/18 10/15/18 13:56 16:17 18:18 WBC RBC Hgb Hct MCV MCH MCHC RDW Plt Count MPV Neut % (Auto) Lymph % (Auto) Jennings % (Auto) Eos % (Auto) Baso % (Auto) Neut # (Auto) Lymph # (Auto) Jennings # (Auto) Eos # (Auto) Baso # (Auto) APTT Sodium Potassium Chloride Carbon Dioxide Anion Gap BUN Creatinine Est GFR ( Amer) Est GFR (Non-Af Amer) POC Glucose (mg/dL) 142 H Random Glucose Hemoglobin A1c Calcium Phosphorus Magnesium Total Bilirubin AST ALT Alkaline Phosphatase Total Creatine Kinase 124 119 CK-MB (Mass) 15.6 H 12.4 H Troponin I 9.0400 H* 6.9200 H* Total Protein Albumin Globulin Albumin/Globulin Ratio Vitamin B12 Free T4 TSH 3rd Generation Stool Leukocytes, Qual C. difficile Ag & Toxin 10/15/18 10/15/18 10/16/18 20:55 21:15 00:58 WBC RBC Hgb Hct MCV MCH MCHC RDW Plt Count MPV Neut % (Auto) Lymph % (Auto) Jennings % (Auto) Eos % (Auto) Baso % (Auto) Neut # (Auto) Lymph # (Auto) Jennings # (Auto) Eos # (Auto) Baso # (Auto) APTT 61 H D Sodium Potassium Chloride Carbon Dioxide Anion Gap BUN Creatinine Est GFR ( Amer) Est GFR (Non-Af Amer) POC Glucose (mg/dL) 168 H Random Glucose Hemoglobin A1c Calcium Phosphorus Magnesium Total Bilirubin AST ALT Alkaline Phosphatase Total Creatine Kinase 56 CK-MB (Mass) 5.79 H Troponin I 3.4300 H* Total Protein Albumin Globulin Albumin/Globulin Ratio Vitamin B12 Free T4 TSH 3rd Generation Stool Leukocytes, Qual C. difficile Ag & Toxin 10/16/18 10/16/18 10/16/18 06:09 06:10 06:12 WBC 10.9 H RBC 4.06 L Hgb 11.6 L Hct 33.9 L MCV 83.6 MCH 28.7 MCHC 34.3 RDW 13.6 Plt Count 223 MPV 9.3 Neut % (Auto) 70.4 Lymph % (Auto) 16.6 L Jennings % (Auto) 9.7 Eos % (Auto) 2.7 Baso % (Auto) 0.6 Neut # (Auto) 7.7 H Lymph # (Auto) 1.8 Jennings # (Auto) 1.1 H Eos # (Auto) 0.3 Baso # (Auto) 0.1 APTT 62 H Sodium 132 Potassium 4.0 Chloride 98 Carbon Dioxide 27 Anion Gap 12 BUN 12 Creatinine 0.8 Est GFR ( Amer) > 60 Est GFR (Non-Af Amer) > 60 POC Glucose (mg/dL) Random Glucose 131 H Hemoglobin A1c Calcium 8.6 Phosphorus Magnesium Total Bilirubin 0.5 AST 56 ALT 24 Alkaline Phosphatase 65 Total Creatine Kinase CK-MB (Mass) Troponin I Total Protein 6.8 Albumin 3.9 Globulin 3.0 Albumin/Globulin Ratio 1.3 Vitamin B12 Free T4 TSH 3rd Generation Stool Leukocytes, Qual C. difficile Ag & Toxin 10/16/18 06:12 WBC RBC Hgb Hct MCV MCH MCHC RDW Plt Count MPV Neut % (Auto) Lymph % (Auto) Jennings % (Auto) Eos % (Auto) Baso % (Auto) Neut # (Auto) Lymph # (Auto) Jennings # (Auto) Eos # (Auto) Baso # (Auto) APTT Sodium Potassium Chloride Carbon Dioxide Anion Gap BUN Creatinine Est GFR ( Amer) Est GFR (Non-Af Amer) POC Glucose (mg/dL) Random Glucose Hemoglobin A1c Calcium Phosphorus 3.6 Magnesium 1.8 Total Bilirubin AST ALT Alkaline Phosphatase Total Creatine Kinase CK-MB (Mass) Troponin I Total Protein Albumin Globulin Albumin/Globulin Ratio Vitamin B12 Free T4 TSH 3rd Generation Stool Leukocytes, Qual C. difficile Ag & Toxin EKG/Cardiology Studies: Cardiology / EKG Studies 10/15/18 09:31 EKG [ELECTROCARDIOGRAM] Stat Comment: Mode Of Transportation: Reason For Exam: elevated trops 10/15/18 13:25 EKG [ELECTROCARDIOGRAM] Routine Comment: Mode Of Transportation: Reason For Exam: elevated troponins Fingerstick Blood Sugar Results: 168 Review of Systems - Constitutional Constitutional: absent: Fever, Chills, Sweats, Weakness - EENT Eyes: UNREMARKABLE. absent: Diplopia, Discharge Ears: UNREMARKABLE Nose/Mouth/Throat: UNREMARKABLE - Cardiovascular Cardiovascular: UNREMARKABLE. absent: Chest Pain, Chest Pain at Rest - Respiratory Respiratory: UNREMARKABLE. absent: Cough, Dyspnea - Gastrointestinal Gastrointestinal: UNREMARKABLE. absent: Abdominal Pain, Diarrhea - Genitourinary Genitourinary: UNREMARKABLE - Musculoskeletal Musculoskeletal: UNREMARKABLE. absent: Myalgias - Integumentary Integumentary: UNREMARKABLE. absent: Acne, Bleeding Lesions - Neurological Neurological: absent: Headaches, Syncope, UNREMARKABLE - Psychiatric Psychiatric: absent: Depression, Hallucinations, UNREMARKABLE - Endocrine Endocrine: absent: Flushing, UNREMARKABLE Critical Care Progress Note - Prophylaxis GI Prophylaxis GI: Pepsid - Prophylaxis DVT Prophylaxis DVT: Heparin SQ - Nutrition Nutrition: Nutrition Category Date Time Status Heart Healthy Diet [DIET] Diets 10/14/18 Dinner Active Assessment/Plan - Assessment and Plan (Free Text) Assessment: 83 M w/ PMhx of CABG, HTN, DM, admitted w/ chest pain, currently having elevated troponins (9.35, tending currently) w/ no ST elevations, started on heparin drip, plavix, aspirin. Will be transferred to [facility] for cardiac cath with pts primary assisted sales representative Dr. Adams Odom. Dr. Odom has accepted, awaiting bed placement. Patient currently asymptomatic. Patient stable for tele. Plan: Neuro - A&Ox 3 Cardio - hx of CABG, HTN, CAD, DM - c/w heparin drip, plavix, aspirin - c/w HTN meds metoprolol tartarte 12.5 mg PO BID, HCTZ 25 mg PO daily, Cozaar 100 mg PO daily - c/w rosuvastatin 20 mg PO HS - continue to follow ROMIs Pulm - saturating well, no SOB noted - will continue to monitor GI - heart healthy diet - C diff negative (pt reports previous diarrhea prior to admission) - voiding freely, no need for fernández - will continue to monitor Renal - BUN/Cr WNL - continue to monitor Endo - hx of diabetes - ISS ACHS - Accuchecks ACHS - hypoglycemia protocol - TSH/Free T4 WNL - HgA1C 6.6 Heme - H/H WNL - WBC elevated @ 13 - afebrile - will continue to monitor; likely reactive to chest pain PPX - GI: Pepcid 20 mg PO daily - DVT: SCDs, on heparin drip <Fiordaliza Falcon M - Last Filed: 02/28/19 14:10> CCU Objective - Vital Signs / Intake & Output Vital Signs (Last 4 hours): Vital Signs Temp Pulse Resp BP Pulse Ox 10/16/18 11:50 98.2 F 69 18 111/68 98 10/16/18 10:06 70 19 125/46 L Intake and Output (Last 8hrs): Intake & Output 10/15/18 10/16/18 10/16/18 22:59 06:59 14:59 Intake Total 576.0 666.0 138.0 Output Total 800 700 800 Balance -224.0 -34.0 -662.0 Weight 167 lb 8.821 oz Intake: IV 250 Intake, IV Amount 76.0 76.0 38.0 left AC 76.0 76.0 38.0 Oral 500 340 100 Output: Urine 800 700 Urine, Voided 800 700 Urine/Stool Mix 800 Other: # Voids Urine, Voided 0 0 0 # Bowel Movements 0 0 0 - Medications Active Medications: Active Medications Generic Name Dose Route Start Last Admin Trade Name Freq PRN Reason Stop Dose Admin Aspirin 81 mg 10/15/18 10:00 10/16/18 09:48 Aspirin Chewable PO 81 mg DAILY SHAD Administration Clopidogrel Bisulfate 75 mg 10/15/18 10:00 10/16/18 09:47 Plavix PO 75 mg DAILY SHAD Administration Famotidine 20 mg 10/16/18 10:00 10/16/18 09:49 Pepcid PO 20 mg DAILY SHAD Administration Hydrochlorothiazide 25 mg 10/15/18 10:00 10/16/18 09:48 Hydrodiuril PO 25 mg DAILY SHAD Administration Heparin Sodium/Sodium Chloride 25,000 units in 250 mls @ 9.525 mls/hr 10/14/18 23:49 10/16/18 08:11 Heparin 87588 Units/250ml 1/2 Normal Saline IV 12 units/kg/hr .Q24H PRN 9.525 mls/hr PROTOCOL Administration Protocol 12 UNITS/KG/HR Insulin Human Regular 0 unit 10/14/18 22:00 10/16/18 11:52 Novolin R SC Not Given ACHS [facility] Protocol Losartan Potassium 100 mg 10/15/18 10:00 10/16/18 09:48 Cozaar PO 100 mg DAILY SHAD Administration Metoprolol Tartrate 12.5 mg 10/15/18 00:53 10/16/18 09:48 Lopressor PO 12.5 mg BID SHAD Administration Rosuvastatin Calcium 20 mg 10/15/18 22:00 10/15/18 21:57 Crestor PO 20 mg HS SHAD Administration - Patient Studies Lab Studies: Microbiology Studies 10/15/18 12:15 Stool Culture - Preliminary Stool No growth. 10/15/18 01:35 Urine Culture - Final Urine Random No Growth (<1,000 CFU/ML) 10/14/18 22:27 Blood Culture - Preliminary Blood NO GROWTH AFTER 24 HOURS 10/14/18 22:27 Blood Culture - Preliminary Blood NO GROWTH AFTER 24 HOURS Lab Studies 10/16/18 10/16/18 10/16/18 Range/Units 11:27 07:13 06:12 WBC (4.8-10.8) K/uL RBC (4.40-5.90) Mil/uL Hgb (12.0-18.0) g/dL Hct (35.0-51.0) % MCV (80.0-94.0) fL MCH (27.0-31.0) pg MCHC (33.0-37.0) g/dL RDW (11.5-14.5) % Plt Count (130-400) K/uL MPV (7.2-11.7) fL Neut % (Auto) (50.0-75.0) % Lymph % (Auto) (20.0-40.0) % Jennings % (Auto) (0.0-10.0) % Eos % (Auto) (0.0-4.0) % Baso % (Auto) (0.0-2.0) % Neut # (Auto) (1.8-7.0) K/uL Lymph # (Auto) (1.0-4.3) K/uL Jennings # (Auto) (0.0-0.8) K/uL Eos # (Auto) (0.0-0.7) K/uL Baso # (Auto) (0.0-0.2) K/uL APTT (21-34) SECONDS Sodium (132-148) mmol/L Potassium (3.6-5.2) mmol/L Chloride (98-107) mmol/L Carbon Dioxide (22-30) mmol/L Anion Gap (10-20) BUN (9-20) mg/dL Creatinine (0.8-1.5) mg/dL Est GFR ( Amer) Est GFR (Non-Af Amer) POC Glucose (mg/dL) 130 H 141 H (65-110) mg/dL Random Glucose (75-110) mg/dL Calcium (8.6-10.4) mg/dl Phosphorus 3.6 (2.5-4.5) mg/dL Magnesium 1.8 (1.6-2.3) mg/dL Total Bilirubin (0.2-1.3) mg/dL AST (17-59) U/L ALT (21-72) U/L Alkaline Phosphatase (38-126) U/L Total Creatine Kinase (55-170) U/L CK-MB (Mass) (0.0-3.38) ng/mL Troponin I (0.00-0.120) ng/mL Total Protein (6.3-8.3) g/dL Albumin (3.5-5.0) g/dL Globulin (2.2-3.9) gm/dL Albumin/Globulin Ratio (1.0-2.1) Stool Leukocytes, Qual (NEGATIVE) C. difficile Ag & Toxin (NEGATIVE) 10/16/18 10/16/18 10/16/18 Range/Units 06:12 06:10 06:09 WBC 10.9 H (4.8-10.8) K/uL RBC 4.06 L (4.40-5.90) Mil/uL Hgb 11.6 L (12.0-18.0) g/dL Hct 33.9 L (35.0-51.0) % MCV 83.6 (80.0-94.0) fL MCH 28.7 (27.0-31.0) pg MCHC 34.3 (33.0-37.0) g/dL RDW 13.6 (11.5-14.5) % Plt Count 223 (130-400) K/uL MPV 9.3 (7.2-11.7) fL Neut % (Auto) 70.4 (50.0-75.0) % Lymph % (Auto) 16.6 L (20.0-40.0) % Jennings % (Auto) 9.7 (0.0-10.0) % Eos % (Auto) 2.7 (0.0-4.0) % Baso % (Auto) 0.6 (0.0-2.0) % Neut # (Auto) 7.7 H (1.8-7.0) K/uL Lymph # (Auto) 1.8 (1.0-4.3) K/uL Jennings # (Auto) 1.1 H (0.0-0.8) K/uL Eos # (Auto) 0.3 (0.0-0.7) K/uL Baso # (Auto) 0.1 (0.0-0.2) K/uL APTT 62 H (21-34) SECONDS Sodium 132 (132-148) mmol/L Potassium 4.0 (3.6-5.2) mmol/L Chloride 98 (98-107) mmol/L Carbon Dioxide 27 (22-30) mmol/L Anion Gap 12 (10-20) BUN 12 (9-20) mg/dL Creatinine 0.8 (0.8-1.5) mg/dL Est GFR ( Amer) > 60 Est GFR (Non-Af Amer) > 60 POC Glucose (mg/dL) (65-110) mg/dL Random Glucose 131 H (75-110) mg/dL Calcium 8.6 (8.6-10.4) mg/dl Phosphorus (2.5-4.5) mg/dL Magnesium (1.6-2.3) mg/dL Total Bilirubin 0.5 (0.2-1.3) mg/dL AST 56 (17-59) U/L ALT 24 (21-72) U/L Alkaline Phosphatase 65 (38-126) U/L Total Creatine Kinase (55-170) U/L CK-MB (Mass) (0.0-3.38) ng/mL Troponin I (0.00-0.120) ng/mL Total Protein 6.8 (6.3-8.3) g/dL Albumin 3.9 (3.5-5.0) g/dL Globulin 3.0 (2.2-3.9) gm/dL Albumin/Globulin Ratio 1.3 (1.0-2.1) Stool Leukocytes, Qual (NEGATIVE) C. difficile Ag & Toxin (NEGATIVE) 10/16/18 10/15/1810/15/19 Range/Units 00:58 21:15 20:55 WBC (4.8-10.8) K/uL RBC (4.40-5.90) Mil/uL Hgb (12.0-18.0) g/dL Hct (35.0-51.0) % MCV (80.0-94.0) fL MCH (27.0-31.0) pg MCHC (33.0-37.0) g/dL RDW (11.5-14.5) % Plt Count (130-400) K/uL MPV (7.2-11.7) fL Neut % (Auto) (50.0-75.0) % Lymph % (Auto) (20.0-40.0) % Jennings % (Auto) (0.0-10.0) % Eos % (Auto) (0.0-4.0) % Baso % (Auto) (0.0-2.0) % Neut # (Auto) (1.8-7.0) K/uL Lymph # (Auto) (1.0-4.3) K/uL Jennings # (Auto) (0.0-0.8) K/uL Eos # (Auto) (0.0-0.7) K/uL Baso # (Auto) (0.0-0.2) K/uL APTT 61 H D (21-34) SECONDS Sodium (132-148) mmol/L Potassium (3.6-5.2) mmol/L Chloride (98-107) mmol/L Carbon Dioxide (22-30) mmol/L Anion Gap (10-20) BUN (9-20) mg/dL Creatinine (0.8-1.5) mg/dL Est GFR ( Amer) Est GFR (Non-Af Amer) POC Glucose (mg/dL) 168 H (65-110) mg/dL Random Glucose (75-110) mg/dL Calcium (8.6-10.4) mg/dl Phosphorus (2.5-4.5) mg/dL Magnesium (1.6-2.3) mg/dL Total Bilirubin (0.2-1.3) mg/dL AST (17-59) U/L ALT (21-72) U/L Alkaline Phosphatase (38-126) U/L Total Creatine Kinase 56 (55-170) U/L CK-MB (Mass) 5.79 H (0.0-3.38) ng/mL Troponin I 3.4300 H* (0.00-0.120) ng/mL Total Protein (6.3-8.3) g/dL Albumin (3.5-5.0) g/dL Globulin (2.2-3.9) gm/dL Albumin/Globulin Ratio (1.0-2.1) Stool Leukocytes, Qual (NEGATIVE) C. difficile Ag & Toxin (NEGATIVE) 10/15/18 10/15/18 10/15/18 Range/Units 18:18 16:17 13:56 WBC (4.8-10.8) K/uL RBC (4.40-5.90) Mil/uL Hgb (12.0-18.0) g/dL Hct (35.0-51.0) % MCV (80.0-94.0) fL MCH (27.0-31.0) pg MCHC (33.0-37.0) g/dL RDW (11.5-14.5) % Plt Count (130-400) K/uL MPV (7.2-11.7) fL Neut % (Auto) (50.0-75.0) % Lymph % (Auto) (20.0-40.0) % Jennings % (Auto) (0.0-10.0) % Eos % (Auto) (0.0-4.0) % Baso % (Auto) (0.0-2.0) % Neut # (Auto) (1.8-7.0) K/uL Lymph # (Auto) (1.0-4.3) K/uL Jennings # (Auto) (0.0-0.8) K/uL Eos # (Auto) (0.0-0.7) K/uL Baso # (Auto) (0.0-0.2) K/uL APTT (21-34) SECONDS Sodium (132-148) mmol/L Potassium (3.6-5.2) mmol/L Chloride (98-107) mmol/L Carbon Dioxide (22-30) mmol/L Anion Gap (10-20) BUN (9-20) mg/dL Creatinine (0.8-1.5) mg/dL Est GFR ( Amer) Est GFR (Non-Af Amer) POC Glucose (mg/dL) 142 H (65-110) mg/dL Random Glucose (75-110) mg/dL Calcium (8.6-10.4) mg/dl Phosphorus (2.5-4.5) mg/dL Magnesium (1.6-2.3) mg/dL Total Bilirubin (0.2-1.3) mg/dL AST (17-59) U/L ALT (21-72) U/L Alkaline Phosphatase (38-126) U/L Total Creatine Kinase 119 124 (55-170) U/L CK-MB (Mass) 12.4 H 15.6 H (0.0-3.38) ng/mL Troponin I 6.9200 H* 9.0400 H* (0.00-0.120) ng/mL Total Protein (6.3-8.3) g/dL Albumin (3.5-5.0) g/dL Globulin (2.2-3.9) gm/dL Albumin/Globulin Ratio (1.0-2.1) Stool Leukocytes, Qual (NEGATIVE) C. difficile Ag & Toxin (NEGATIVE) 10/15/18 10/15/18 10/15/18 Range/Units 12:11 12:11 06:39 WBC (4.8-10.8) K/uL RBC (4.40-5.90) Mil/uL Hgb (12.0-18.0) g/dL Hct (35.0-51.0) % MCV (80.0-94.0) fL MCH (27.0-31.0) pg MCHC (33.0-37.0) g/dL RDW (11.5-14.5) % Plt Count (130-400) K/uL MPV (7.2-11.7) fL Neut % (Auto) (50.0-75.0) % Lymph % (Auto) (20.0-40.0) % Jennings % (Auto) (0.0-10.0) % Eos % (Auto) (0.0-4.0) % Baso % (Auto) (0.0-2.0) % Neut # (Auto) (1.8-7.0) K/uL Lymph # (Auto) (1.0-4.3) K/uL Jennings # (Auto) (0.0-0.8) K/uL Eos # (Auto) (0.0-0.7) K/uL Baso # (Auto) (0.0-0.2) K/uL APTT (21-34) SECONDS Sodium (132-148) mmol/L Potassium (3.6-5.2) mmol/L Chloride (98-107) mmol/L Carbon Dioxide (22-30) mmol/L Anion Gap (10-20) BUN (9-20) mg/dL Creatinine (0.8-1.5) mg/dL Est GFR ( Amer) Est GFR (Non-Af Amer) POC Glucose (mg/dL) 165 H (65-110) mg/dL Random Glucose (75-110) mg/dL Calcium (8.6-10.4) mg/dl Phosphorus (2.5-4.5) mg/dL Magnesium (1.6-2.3) mg/dL Total Bilirubin (0.2-1.3) mg/dL AST (17-59) U/L ALT (21-72) U/L Alkaline Phosphatase (38-126) U/L Total Creatine Kinase (55-170) U/L CK-MB (Mass) (0.0-3.38) ng/mL Troponin I (0.00-0.120) ng/mL Total Protein (6.3-8.3) g/dL Albumin (3.5-5.0) g/dL Globulin (2.2-3.9) gm/dL Albumin/Globulin Ratio (1.0-2.1) Stool Leukocytes, Qual Negative (NEGATIVE) C. difficile Ag & Toxin Negative (NEGATIVE) Laboratory Results - last 24 hr 10/15/18 10/15/18 10/15/18 06:39 12:11 12:11 WBC RBC Hgb Hct MCV MCH MCHC RDW Plt Count MPV Neut % (Auto) Lymph % (Auto) Jennings % (Auto) Eos % (Auto) Baso % (Auto) Neut # (Auto) Lymph # (Auto) Jennings # (Auto) Eos # (Auto) Baso # (Auto) APTT Sodium Potassium Chloride Carbon Dioxide Anion Gap BUN Creatinine Est GFR ( Amer) Est GFR (Non-Af Amer) POC Glucose (mg/dL) 165 H Random Glucose Calcium Phosphorus Magnesium Total Bilirubin AST ALT Alkaline Phosphatase Total Creatine Kinase CK-MB (Mass) Troponin I Total Protein Albumin Globulin Albumin/Globulin Ratio Stool Leukocytes, Qual Negative C. difficile Ag & Toxin Negative 10/15/18 10/15/18 10/15/18 13:56 16:17 18:18 WBC RBC Hgb Hct MCV MCH MCHC RDW Plt Count MPV Neut % (Auto) Lymph % (Auto) Jennings % (Auto) Eos % (Auto) Baso % (Auto) Neut # (Auto) Lymph # (Auto) Jennings # (Auto) Eos # (Auto) Baso # (Auto) APTT Sodium Potassium Chloride Carbon Dioxide Anion Gap BUN Creatinine Est GFR ( Amer) Est GFR (Non-Af Amer) POC Glucose (mg/dL) 142 H Random Glucose Calcium Phosphorus Magnesium Total Bilirubin AST ALT Alkaline Phosphatase Total Creatine Kinase 124 119 CK-MB (Mass) 15.6 H 12.4 H Troponin I 9.0400 H* 6.9200 H* Total Protein Albumin Globulin Albumin/Globulin Ratio Stool Leukocytes, Qual C. difficile Ag & Toxin 10/15/18 10/15/18 10/16/18 20:55 21:15 00:58 WBC RBC Hgb Hct MCV MCH MCHC RDW Plt Count MPV Neut % (Auto) Lymph % (Auto) Jennings % (Auto) Eos % (Auto) Baso % (Auto) Neut # (Auto) Lymph # (Auto) Jennings # (Auto) Eos # (Auto) Baso # (Auto) APTT 61 H D Sodium Potassium Chloride Carbon Dioxide Anion Gap BUN Creatinine Est GFR ( Amer) Est GFR (Non-Af Amer) POC Glucose (mg/dL) 168 H Random Glucose Calcium Phosphorus Magnesium Total Bilirubin AST ALT Alkaline Phosphatase Total Creatine Kinase 56 CK-MB (Mass) 5.79 H Troponin I 3.4300 H* Total Protein Albumin Globulin Albumin/Globulin Ratio Stool Leukocytes, Qual C. difficile Ag & Toxin 10/16/18 10/16/18 10/16/18 06:09 06:10 06:12 WBC 10.9 H RBC 4.06 L Hgb 11.6 L Hct 33.9 L MCV 83.6 MCH 28.7 MCHC 34.3 RDW 13.6 Plt Count 223 MPV 9.3 Neut % (Auto) 70.4 Lymph % (Auto) 16.6 L Jennings % (Auto) 9.7 Eos % (Auto) 2.7 Baso % (Auto) 0.6 Neut # (Auto) 7.7 H Lymph # (Auto) 1.8 Jennings # (Auto) 1.1 H Eos # (Auto) 0.3 Baso # (Auto) 0.1 APTT 62 H Sodium 132 Potassium 4.0 Chloride 98 Carbon Dioxide 27 Anion Gap 12 BUN 12 Creatinine 0.8 Est GFR ( Amer) > 60 Est GFR (Non-Af Amer) > 60 POC Glucose (mg/dL) Random Glucose 131 H Calcium 8.6 Phosphorus Magnesium Total Bilirubin 0.5 AST 56 ALT 24 Alkaline Phosphatase 65 Total Creatine Kinase CK-MB (Mass) Troponin I Total Protein 6.8 Albumin 3.9 Globulin 3.0 Albumin/Globulin Ratio 1.3 Stool Leukocytes, Qual C. difficile Ag & Toxin 10/16/18 10/16/18 10/16/18 06:12 07:13 11:27 WBC RBC Hgb Hct MCV MCH MCHC RDW Plt Count MPV Neut % (Auto) Lymph % (Auto) Jennings % (Auto) Eos % (Auto) Baso % (Auto) Neut # (Auto) Lymph # (Auto) Jennings # (Auto) Eos # (Auto) Baso # (Auto) APTT Sodium Potassium Chloride Carbon Dioxide Anion Gap BUN Creatinine Est GFR ( Amer) Est GFR (Non-Af Amer) POC Glucose (mg/dL) 141 H 130 H Random Glucose Calcium Phosphorus 3.6 Magnesium 1.8 Total Bilirubin AST ALT Alkaline Phosphatase Total Creatine Kinase CK-MB (Mass) Troponin I Total Protein Albumin Globulin Albumin/Globulin Ratio Stool Leukocytes, Qual C. difficile Ag & Toxin EKG/Cardiology Studies: Cardiology / EKG Studies 10/15/18 13:25 EKG [ELECTROCARDIOGRAM] Routine Comment: Mode Of Transportation: Reason For Exam: elevated troponins Critical Care Progress Note - Nutrition Nutrition: Nutrition Category Date Time Status Heart Healthy Diet [DIET] Diets 10/14/18 Dinner Active Assessment/Plan - Assessment and Plan (Free Text) Plan: Patient seen and examined at bedside. Patient sleeping comfortably. Denies any chest pain. deneies any palpitations. -encourage to walk -Patient remains hemodynamically stable -above resident note reviewed and verified. -EF ~58, Patient strongly adivsed to healthy diet and strict blood glucose control -continue to monitor - Date & Time Date: 10/16/18 Time: 14:10
[2018-10-16] MEDS: Heparin25000 units/250ml 1/2NS 25,000 UNITS/250 ML BAG IV PRN (08:11)
[2018-10-16] MEDS: (Novolin R) Insulin Human Regular 100 units/ml vial SC SCH ×4 (08:23→21:11)
--- NOTE | 2018-10-16 10:07 | CP.PCM.PN ---
Subjective - Date & Time of Evaluation Date of Evaluation: 10/16/18 Time of Evaluation: 09:45 - Subjective Subjective: Medical attending note: patient seen and examined. patient is walking with clinical partner. Patient denies headache, denies chest pain, denies shortness of breathe, denies abdominal pain, denies nausea, denies vomitting, and reports diarrhea has resolved. He reports Dr. Lopez is coming to visit (personal doctor who refered patient to [facility]). Objective - Vital Signs/Intake and Output Vital Signs (last 24 hours): Temp Pulse Resp BP Pulse Ox 98.4 F 75 18 133/53 L 98 10/16/18 04:00 10/16/18 07:00 10/16/18 07:00 10/16/18 06:59 10/16/18 07:00 Intake and Output: 10/16/18 10/16/18 06:59 18:59 Intake Total 1104.0 9.5 Output Total 1100 Balance 4.0 9.5 - Medications Medications: Current Medications Aspirin (Aspirin Chewable) 81 mg PO DAILY [facility] Last Admin: 10/16/18 09:48 Dose: 81 mg Clopidogrel Bisulfate (Plavix) 75 mg PO DAILY [facility] Last Admin: 10/16/18 09:47 Dose: 75 mg Famotidine (Pepcid) 20 mg PO DAILY [facility] Last Admin: 10/16/18 09:49 Dose: 20 mg Hydrochlorothiazide (Hydrodiuril) 25 mg PO DAILY [facility] Last Admin: 10/16/18 09:48 Dose: 25 mg Heparin Sodium/Sodium Chloride (Heparin 81360 Units/250ml 1/2 Normal Saline) 25,000 units in 250 mls @ 9.525 mls/hr IV .Q24H PRN; Protocol PRN Reason: PROTOCOL Last Admin: 10/16/18 08:11 Dose: 12 units/kg/hr, 9.525 mls/hr Insulin Human Regular (Novolin R) 0 unit SC ACHS [facility]; Protocol Last Admin: 10/16/18 08:23 Dose: Not Given Losartan Potassium (Cozaar) 100 mg PO DAILY [facility] Last Admin: 10/16/18 09:48 Dose: 100 mg Metoprolol Tartrate (Lopressor) 12.5 mg PO BID [facility] Last Admin: 10/16/18 09:48 Dose: 12.5 mg Rosuvastatin Calcium (Crestor) 20 mg PO HS [facility] Last Admin: 10/15/18 21:57 Dose: 20 mg - Labs Labs: 10/16/18 06:09 10/16/18 06:12 PT 12.5 SECONDS (9.7-12.2) H 10/14/18 16:12 INR 1.1 10/14/18 16:12 APTT 62 SECONDS (21-34) H 10/16/18 06:10 - Constitutional Appears: Non-toxic, No Acute Distress - Head Exam Head Exam: NORMAL INSPECTION - Eye Exam Eye Exam: EOMI - ENT Exam ENT Exam: Mucous Membranes Moist - Respiratory Exam Respiratory Exam: Clear to Ausculation Bilateral, NORMAL BREATHING PATTERN. absent: Rales, Rhonchi, Wheezes - Cardiovascular Exam Cardiovascular Exam: REGULAR RHYTHM, +S1, +S2 - GI/Abdominal Exam GI & Abdominal Exam: Distended (obese habitus), Soft, Normal Bowel Sounds. absent: Firm, Guarding, Rigid, Tenderness, Rebound - Extremities Exam Extremities Exam: absent: Pedal Edema, Tenderness - Neurological Exam Neurological Exam: Alert, Awake, Oriented x3 - Psychiatric Exam Psychiatric exam: Normal Affect, Normal Mood - Skin Skin Exam: Dry, Normal Color, Warm Assessment and Plan (1) Non-STEMI (non-ST elevated myocardial infarction) Status: Acute (2) CAD (coronary artery disease) Status: Acute (3) Hx of CABG Status: Acute (4) Diabetes Status: Acute (5) Hypertension Status: Acute (6) Lipid disorder Status: Acute (7) Diarrhea Status: Acute Attending/Attestation - Attestation I have personally seen and examined this patient.: Yes I have fully participated in the care of the patient.: Yes I have reviewed all pertinent clinical information, including history, physical exam and plan: Yes Notes (Text): Patient is an 83-year-old male with past medical history including CABG known CAD diabetes, lipid disorder, hypertension who came in after chest pain and associated on feeling well. Overnight patient did have a positive troponin was started on a heparin drip night resident did inform cardiology service. Patient seen this morning given that the troponin did increase from 1-9. Patient was evaluated while an echo patient denies any acute complaints reports he does not have any pain. Discussed case with ICU patient transferred to ICU for further monitoring. Patient reevaluated with a family present at bedside bedside this afternoon patient's 2 daughters as well as sister was present at bedside patient continues to not have any pain. Discussed case with Dr. Alegre noted the family request to be transferred to [place] to be seen by the technical illustrator for Cardiac catheter cardiac cath Dr. Quevedo has filled out the intolerance spoken to [place] we are awaiting a bed when bed is available patient will be transferred to [place]. Assessment/plan NSTEMI Assessment/Plan * Transferred to the intensive care following troponin rise from 1to 9 10/15/18 * Patient did receive aspirin, Plavix, as well as heparin drip on 10/15/18 * Serial EKGs performed patient is non-STEMI discussed case with cardiology patient to be transferred to [place] to be seen by the primary technical illustrator per request of family * Patient is currently on aspirin, Plavix, beta-meagan, heparin drip, statin, thiazide diuretic and Norvasc * Patient has significant cardiac risk factors including CAD, history of quadruple bypass surgery initially in 1999 3 repeat cardiac cath in 2017 as well as lipids are diabetes, hypertension * pending transfer to [place] Hx of CAD s/p CABG Assessment/Plan * aspirin, statin, beta meagan, prem cardiology on board * prior cath 2016 * pending transfer to [facility] DM II Assessment/Plan * A1C 6.6 * home meds held * ISS medium * accuchecks ACHS * hypoglycemic protocol HTN Assessment/Plan * Continue antihypertensives Leukocytosis Assessment/Plan * Monitor * Blood cultures negative times 24 hours x2 * urine culture no growth * Awaiting stool culture since patient had also noted diarrhea for approximately 2-3 weeks Diarrhea Assessment/Plan * f/u stool cx, ova and parasite, c diff: negative, fecal leukocyte * Patient did provide a sample awaiting results * patient reports resolved PPx, Diet, Disposition * DVT ppx: scds, heparin ggt * GI: not indicated at this time * Diet: HHD Disposition: Patient changed to inpatient given patient as having a non-STEMI with worsening troponin from 1-->9 10/15/18. Discussed case with cardiology patient is pending transfer to [place] with cardiac cath. Per request of family patient is awaiting bed continue to monitor. Cardiology setup transfer.
--- NOTE | 2018-10-16 10:08 | CP.PCM.PN ---
Subjective - Date & Time of Evaluation Date of Evaluation: 10/16/18 Time of Evaluation: 10:06 - Subjective Subjective: Pt feels. Objective - Vital Signs/Intake and Output Vital Signs (last 24 hours): Temp Pulse Resp BP Pulse Ox 98.4 F 75 18 133/53 L 98 10/16/18 04:00 10/16/18 07:00 10/16/18 07:00 10/16/18 06:59 10/16/18 07:00 Intake and Output: 10/16/18 10/16/18 06:59 18:59 Intake Total 1104.0 9.5 Output Total 1100 Balance 4.0 9.5 - Medications Medications: Current Medications Aspirin (Aspirin Chewable) 81 mg PO DAILY [facility] Last Admin: 10/16/18 09:48 Dose: 81 mg Clopidogrel Bisulfate (Plavix) 75 mg PO DAILY [facility] Last Admin: 10/16/18 09:47 Dose: 75 mg Famotidine (Pepcid) 20 mg PO DAILY [facility] Last Admin: 10/16/18 09:49 Dose: 20 mg Hydrochlorothiazide (Hydrodiuril) 25 mg PO DAILY [facility] Last Admin: 10/16/18 09:48 Dose: 25 mg Heparin Sodium/Sodium Chloride (Heparin 77818 Units/250ml 1/2 Normal Saline) 25,000 units in 250 mls @ 9.525 mls/hr IV .Q24H PRN; Protocol PRN Reason: PROTOCOL Last Admin: 10/16/18 08:11 Dose: 12 units/kg/hr, 9.525 mls/hr Insulin Human Regular (Novolin R) 0 unit SC ACHS [facility]; Protocol Last Admin: 10/16/18 08:23 Dose: Not Given Losartan Potassium (Cozaar) 100 mg PO DAILY [facility] Last Admin: 10/16/18 09:48 Dose: 100 mg Metoprolol Tartrate (Lopressor) 12.5 mg PO BID [facility] Last Admin: 10/16/18 09:48 Dose: 12.5 mg Rosuvastatin Calcium (Crestor) 20 mg PO HS [facility] Last Admin: 10/15/18 21:57 Dose: 20 mg - Labs Labs: 10/16/18 06:09 10/16/18 06:12 PT 12.5 SECONDS (9.7-12.2) H 10/14/18 16:12 INR 1.1 10/14/18 16:12 APTT 62 SECONDS (21-34) H 10/16/18 06:10 - Constitutional Appears: Well, No Acute Distress - Head Exam Head Exam: NORMAL INSPECTION - Eye Exam Eye Exam: EOMI Pupil Exam: NORMAL ACCOMODATION - ENT Exam ENT Exam: Mucous Membranes Moist - Respiratory Exam Respiratory Exam: Clear to Ausculation Bilateral, NORMAL BREATHING PATTERN - Cardiovascular Exam Cardiovascular Exam: Tachycardia - Rectal Exam Rectal Exam: NORMAL INSPECTION - Exam External exam: NORMAL EXTERNAL EXAM - Extremities Exam Extremities Exam: Full ROM - Back Exam Back Exam: NORMAL INSPECTION - Neurological Exam Neurological Exam: Alert, Awake, Oriented x3 - Psychiatric Exam Psychiatric exam: Normal Mood - Skin Skin Exam: Normal Color Assessment and Plan - Assessment and Plan (Free Text) Assessment: uncomplicated non stemi. Pt is stable. he is to go to [place] for cath tomorrow, TNI trending donwards.
[2018-10-17 04:16] VITALS: RESP 18; O2SAT 98
[2018-10-17 04:20] LABS: BASO % 0.2 % (0.0-2.0); EOS # 0.4 K/uL (0.0-0.7); EOS % 4.2 % (0.0-4.0); HEMOGLOBIN 11.5 g/dL (12.0-18.0); LYMPH # 2.2 K/uL (1.0-4.3); LYMPH % 24.5 % (20.0-40.0); MEAN CELL VOLUME 83.2 fL (80.0-94.0); MEAN CORPUSCULAR HGB CONC 33.7 g/dL (33.0-37.0); MEAN PLATELET VOLUME 9.2 fL (7.2-11.7); MONO # 0.9 K/uL (0.0-0.8); MONO % 10.3 % (0.0-10.0); NEUT # 5.4 K/uL (1.8-7.0); NEUT % 60.8 % (50.0-75.0); NRBC % 0.2 % (0.0-2.0); RBC 4.1 Mil/uL (4.40-5.90); RED CELL DISTRIBUTION WIDTH 13.7 % (11.5-14.5); WHITE BLOOD COUNT 8.9 K/uL (4.8-10.8)
[2018-10-17 04:46] LABS: BLOOD UREA NITROGEN 9 mg/dL (9-20); GFR NON-AFRICAN AMERICAN > 60
[2018-10-17 04:47] LABS: ALB/GLOB RATIO 1.3 (1.0-2.1); ALBUMIN 3.8 g/dL (3.5-5.0); ALT/SGPT 22 U/L (21-72); AST/SGOT 29 U/L (17-59); CALCIUM 8.6 mg/dl (8.6-10.4)
[2018-10-17 05:40] VITALS: BP 132/61; PULSE 62; TEMP 97.6
--- NOTE | 2018-10-17 05:40 | CP.PCM.PN ---
<Eric Craft - Last Filed: 10/17/18 05:37> Subjective - Date & Time of Evaluation Date of Evaluation: 10/17/18 Time of Evaluation: 05:54 - Subjective Subjective: PGY-[address] Garcias Patient seen and examined at bedside this morning prior to transfer to [facility]. Patient not complaining of any symptoms this morning. He denies any chest pain, shortness of breath, lightheadedness, n/v. Patient to be transferred to [place] for further medical care. Objective - Vital Signs/Intake and Output Vital Signs (last 24 hours): Temp Pulse Resp BP Pulse Ox 97.9 F 54 L 18 132/78 98 10/17/18 03:00 10/17/18 03:00 10/17/18 03:00 10/17/18 03:00 10/17/18 03:00 Intake and Output: 10/16/18 10/17/18 18:59 06:59 Intake Total 434.5 9.5 Output Total 801 Balance -366.5 9.5 - Medications Medications: Current Medications Aspirin (Aspirin Chewable) 81 mg PO DAILY [facility] Last Admin: 10/16/18 09:48 Dose: 81 mg Clopidogrel Bisulfate (Plavix) 75 mg PO DAILY [facility] Last Admin: 10/16/18 09:47 Dose: 75 mg Famotidine (Pepcid) 20 mg PO DAILY [facility] Last Admin: 10/16/18 09:49 Dose: 20 mg Hydrochlorothiazide (Hydrodiuril) 25 mg PO DAILY [facility] Last Admin: 10/16/18 09:48 Dose: 25 mg Heparin Sodium/Sodium Chloride (Heparin 60963 Units/250ml 1/2 Normal Saline) 25,000 units in 250 mls @ 9.525 mls/hr IV .Q24H PRN; Protocol PRN Reason: PROTOCOL Last Admin: 10/16/18 08:11 Dose: 12 units/kg/hr, 9.525 mls/hr Insulin Human Regular (Novolin R) 0 unit SC ACHS [facility]; Protocol Last Admin: 10/16/18 21:11 Dose: Not Given Loperamide HCl (Imodium) 2 mg PO QID PRN PRN Reason: Diarrhea Last Admin: 10/16/18 18:04 Dose: 2 mg Losartan Potassium (Cozaar) 100 mg PO DAILY [facility] Last Admin: 10/16/18 09:48 Dose: 100 mg Metoprolol Tartrate (Lopressor) 12.5 mg PO BID [facility] Last Admin: 10/16/18 17:09 Dose: 12.5 mg Rosuvastatin Calcium (Crestor) 20 mg PO HS [facility] Last Admin: 10/16/18 21:16 Dose: 20 mg - Labs Labs: 10/17/18 03:51 10/17/18 03:51 PT 12.5 SECONDS (9.7-12.2) H 10/14/18 16:12 INR 1.1 10/14/18 16:12 APTT 63 SECONDS (21-34) H 10/17/18 03:51 - Constitutional Appears: Non-toxic, No Acute Distress - Head Exam Head Exam: ATRAUMATIC, NORMOCEPHALIC - Eye Exam Eye Exam: EOMI - ENT Exam ENT Exam: Mucous Membranes Moist - Neck Exam Neck Exam: Full ROM - Respiratory Exam Respiratory Exam: Clear to Ausculation Bilateral, NORMAL BREATHING PATTERN. absent: Rhonchi, Wheezes - Cardiovascular Exam Cardiovascular Exam: REGULAR RHYTHM, +S1, +S2 - GI/Abdominal Exam GI & Abdominal Exam: Soft, Normal Bowel Sounds. absent: Tenderness - Neurological Exam Neurological Exam: Alert, Awake, Oriented x3 - Psychiatric Exam Psychiatric exam: Normal Affect, Normal Mood Assessment and Plan - Assessment and Plan (Free Text) Assessment: 83 year old male with PMHx of CAD s/p CABG, HTN, Diabetes, and Iron Def. Anemia admitted for evaluation and treatment of chest pain r/o ACS. Serial troponins progressively elevated. Patient has since been continued on heparin drip in ICU. Currently medically stable for ACLS transfer to [facility]. Plan: Patient seen this morning prior to transfer to [facility] for continued care. He is currently asymptomatic and medically stable for ACLS transfer to [place]. NSTEMI -Monitored in ICU prior to transfer -pt in no acute distress, denies any cp/palpitations/sob/dizziness -vitals stable -troponins elevated to 9.34, decreased following medical intervention --> 3.43 -CXR (10/14): no acute findings -EKG (10/14): NSR @ [address] elevations or ischemic changes noted -Echo without remarkable findings, with normal EF -Cardiology (Dr. Blair) on case Current meds -ASA 81 mg PO daily -Plavix 75 mg PO daily -heparin gtt -crestor 20 mg PO HS -metoprolol 12.5 mg PO BID Hx of CAD s/p CABG -CABG 2016 at [facility] -ASA -Plavix -Crestor -BB -restarted home Losartan, HCTZ (10/15) DM II -A1C 6.6 -home meds held -ISS medium -accuchecks ACHS -hypoglycemic protocol HTN -normotensive, continue to monitor -restarted Losartan, HCTZ Leukocytosis -leukocytosis resolved -Blood and urine cultures - no growth Intractable Diarrhea -Stool leukocytes, C dif toxin negative -Stool culture - no growth PPx, Diet, Disposition -DVT: scds, heparin ggt -GI: not indicated at this time -Diet: HHD Case discussed with Dr. Dieter Craft, PGY-1 <Hilary Garcias V - Last Filed: 10/17/18 21:53> Objective - Vital Signs/Intake and Output Vital Signs (last 24 hours): Temp Pulse Resp BP Pulse Ox 97.6 F 62 18 132/61 98 10/17/18 05:39 10/17/18 05:39 10/17/18 05:39 10/17/18 05:39 10/17/18 05:39 - Labs Labs: 10/17/18 03:51 10/17/18 03:51 PT 12.5 SECONDS (9.7-12.2) H 10/14/18 16:12 INR 1.1 10/14/18 16:12 APTT 63 SECONDS (21-34) H 10/17/18 03:51 Assessment and Plan (1) Non-STEMI (non-ST elevated myocardial infarction) Status: Acute (2) CAD (coronary artery disease) Status: Acute (3) Hx of CABG Status: Acute (4) Diabetes Status: Acute (5) Hypertension Status: Acute (6) Lipid disorder Status: Acute (7) Diarrhea Status: Acute Attending/Attestation - Attestation Notes (Text): Patient left prior to my arrival, Endorsed transferred to [place] for 6AM cardiac cath procedure this morning.
--- NOTE | 2018-10-17 06:51 | CP.PCM.DIS ---
<Eric Craft - Last Filed: 10/17/18 07:06> Provider - Provider Date of Admission: 10/15/18 09:41 Attending physician: Neymar Epps MD Consults: 10/14/18 20:25 Cardiology Consult Routine Comment: Consulting Provider: Clifton Blair Consulting Physician: Clifton Blair Reason for Consult: Chest Pain, R/O ACS. Hx of CABG, 10/15/18 15:36 Pastoral Care Referral Routine Comment: Physician Instructions: Reason For Exam: would like info on advanced directive Time Spent in preparation of Discharge (in minutes): 45 Diagnosis - Discharge Diagnosis (1) Non-STEMI (non-ST elevated myocardial infarction) Status: Acute Hospital Course - Lab Results Lab Results: Micro Results 10/14/18 22:27 Blood Blood Culture - Preliminary NO GROWTH AFTER 48 HOURS 10/14/18 22:27 Blood Blood Culture - Preliminary NO GROWTH AFTER 48 HOURS 10/15/18 12:15 Nose MRSA Culture (Admit) - Final MRSA NOT DETECTED 10/15/18 12:15 Stool Ova and Parasite Concentrate Exam - Final 10/15/18 12:15 Stool Stool Culture - Preliminary No growth. 10/15/18 01:35 Urine Random Urine Culture - Final No Growth (<1,000 CFU/ML) Most Recent Lab Values WBC 8.9 K/uL (4.8-10.8) 10/17/18 03:51 RBC 4.10 Mil/uL (4.40-5.90) L 10/17/18 03:51 Hgb 11.5 g/dL (12.0-18.0) L 10/17/18 03:51 Hct 34.1 % (35.0-51.0) L 10/17/18 03:51 MCV 83.2 fL (80.0-94.0) 10/17/18 03:51 MCH 28.0 pg (27.0-31.0) 10/17/18 03:51 MCHC 33.7 g/dL (33.0-37.0) 10/17/18 03:51 RDW 13.7 % (11.5-14.5) 10/17/18 03:51 Plt Count 213 K/uL (130-400) 10/17/18 03:51 MPV 9.2 fL (7.2-11.7) 10/17/18 03:51 Neut % (Auto) 60.8 % (50.0-75.0) 10/17/18 03:51 Lymph % (Auto) 24.5 % (20.0-40.0) 10/17/18 03:51 [place] % (Auto) 10.3 % (0.0-10.0) H 10/17/18 03:51 Eos % (Auto) 4.2 % (0.0-4.0) H 10/17/18 03:51 Baso % (Auto) 0.2 % (0.0-2.0) 10/17/18 03:51 Neut # (Auto) 5.4 K/uL (1.8-7.0) 10/17/18 03:51 Lymph # (Auto) 2.2 K/uL (1.0-4.3) 10/17/18 03:51 [place] # (Auto) 0.9 K/uL (0.0-0.8) H 10/17/18 03:51 Eos # (Auto) 0.4 K/uL (0.0-0.7) 10/17/18 03:51 Baso # (Auto) 0.0 K/uL (0.0-0.2) 10/17/18 03:51 Neutrophils % (Manual) 88 % (50-75) H 10/14/18 16:12 Lymphocytes % (Manual) 5 % (20-40) L 10/14/18 16:12 Monocytes % (Manual) 5 % (0-10) 10/14/18 16:12 Eosinophils % (Manual) 2 % (0-4) 10/14/18 16:12 Platelet Estimate Normal (NORMAL) 10/14/18 16:12 Microcytosis (manual) Slight 10/14/18 16:12 Rouleaux Slight 10/14/18 16:12 PT 12.5 SECONDS (9.7-12.2) H 10/14/18 16:12 INR 1.1 10/14/18 16:12 APTT 63 SECONDS (21-34) H 10/17/18 03:51 Sodium 132 mmol/L (132-148) 10/17/18 03:51 Potassium 3.7 mmol/L (3.6-5.2) 10/17/18 03:51 Chloride 97 mmol/L (98-107) L 10/17/18 03:51 Carbon Dioxide 27 mmol/L (22-30) 10/17/18 03:51 Anion Gap 12 (10-20) 10/17/18 03:51 BUN 9 mg/dL (9-20) 10/17/18 03:51 Creatinine 0.8 mg/dL (0.8-1.5) 10/17/18 03:51 Est GFR ( Amer) > 60 10/17/18 03:51 Est GFR (Non-Af Amer) > 60 10/17/18 03:51 POC Glucose (mg/dL) 173 mg/dL (65-110) H 10/16/18 16:23 Random Glucose 121 mg/dL (75-110) H 10/17/18 03:51 Hemoglobin A1c 6.6 % (4.2-6.5) H 10/15/18 06:42 Calcium 8.6 mg/dl (8.6-10.4) 10/17/18 03:51 Phosphorus 3.6 mg/dL (2.5-4.5) 10/17/18 03:51 Magnesium 1.7 mg/dL (1.6-2.3) 10/17/18 03:51 Total Bilirubin 0.6 mg/dL (0.2-1.3) 10/17/18 03:51 AST 29 U/L (17-59) 10/17/18 03:51 ALT 22 U/L (21-72) 10/17/18 03:51 Alkaline Phosphatase 67 U/L (38-126) 10/17/18 03:51 Total Creatine Kinase 56 U/L (55-170) 10/16/18 00:58 CK-MB (Mass) 5.79 ng/mL (0.0-3.38) H 10/16/18 00:58 Troponin I 3.4300 ng/mL (0.00-0.120) H* 10/16/18 00:58 Total Protein 6.6 g/dL (6.3-8.3) 10/17/18 03:51 Albumin 3.8 g/dL (3.5-5.0) 10/17/18 03:51 Globulin 2.9 gm/dL (2.2-3.9) 10/17/18 03:51 Albumin/Globulin Ratio 1.3 (1.0-2.1) 10/17/18 03:51 Vitamin B12 910 pg/mL (239-931) 10/15/18 06:42 Free T4 1.32 ng/dL (0.78-2.19) 10/15/18 06:42 TSH 3rd Generation 1.85 mIU/L (0.46-4.68) 10/15/18 06:42 Urine Color Kristen (YELLOW) 10/15/18 01:35 Urine Clarity Hazy (Clear) 10/15/18 01:35 Urine pH 5.0 (5.0-8.0) 10/15/18 01:35 Ur Specific [place] 1.019 (1.003-1.030) 10/15/18 01:35 Urine Protein 1+ mg/dL (NEGATIVE) H 10/15/18 01:35 Urine Glucose (UA) Normal mg/dL (Normal) 10/15/18 01:35 Urine Ketones Negative mg/dL (NEGATIVE) 10/15/18 01:35 Urine Blood Negative (NEGATIVE) 10/15/18 01:35 Urine Nitrate Negative (NEGATIVE) 10/15/18 01:35 Urine Bilirubin Negative (NEGATIVE) 10/15/18 01:35 Urine Urobilinogen Normal mg/dL (0.2-1.0) 10/15/18 01:35 Ur Leukocyte Esterase Neg Erickson/uL (Negative) 10/15/18 01:35 Urine WBC (Auto) 4 /hpf (0-5) 10/15/18 01:35 Urine RBC (Auto) 21 /hpf (0-3) H 10/15/18 01:35 Ur Squamous Epith Cells < 1 /hpf (0-5) 10/15/18 01:35 Urine Bacteria Rare (<OCC) 10/15/18 01:35 Hyaline Casts 3-5 /lpf (0-2) H 10/15/18 01:35 Stool Leukocytes, Qual Negative (NEGATIVE) 10/15/18 12:11 C. difficile Ag & Toxin Negative (NEGATIVE) 10/15/18 12:11 - Hospital Course Hospital Course: Initial HPI Mr. Machado is a 83 year old male with PMHx of CAD s/p CABG, HTN, Diabetes, and Iron Def. Anemia who presents with complaints of 2/10, non-radiating, sharp right sided chest with associated diaphoresis, SOB, and blurry vision. 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 patient was given ASA 81x3 en route to the E.R. His symptoms have resolved by the time he was examined. Patient does admit to 2 weeks of diarrhea. 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 He was recently put on Immodium by his PMD and he started the medication on Saturday. He was pending a workup for his diarrhea. Hospital course Patient was admitted for observation of chest pain to rule out acute cardiac cause. Intial EKG and ROSEANNA were found to be negative, and patient's chest pain resolved. However, overnight second set of cardiac enzymes (CK, troponin I) became elevated. Cardiology was contacted and patient started on beta meagan, heparin drip, aspirin, and plavix. Following morning patient was transferred to ICU for closer monitoring. Patient remained asymptomatic during this course. Patient was planned to go for cardiac cath, and opted for transfer to [facility] for the procedure. Patient was medically stable upon discharge and was transferred via ACLS transport to [facility]. Imaging -CXR (10/14): no acute findings Please note this is only a summary of the events of this hospital course. For details please see complete medical records. Eric Craft, PGY-1 Discharge Exam - Head Exam Head Exam: ATRAUMATIC, NORMOCEPHALIC - Eye Exam Eye Exam: EOMI, Normal appearance - ENT Exam ENT Exam: Mucous Membranes Moist - Respiratory Exam Respiratory Exam: Clear to PA & Lateral, UNREMARKABLE. absent: Rhonchi, Wheezes - Cardiovascular Exam Cardiovascular Exam: REGULAR RHYTHM, +S1, +S2 - GI/Abdominal Exam GI & Abdominal Exam: Normal Bowel Sounds. absent: Soft, Tenderness - Extremities Exam Extremities exam: normal inspection - Neurological Exam Neurological exam: Alert, CN II-XII Intact, Oriented x3 - Psychiatric Exam Psychiatric exam: Normal Affect, Normal Mood - Skin Skin Exam: Dry, Intact Discharge Plan - Follow Up Plan Condition: STABLE Disposition: Trans to Other Acute Care [facility] Additional Instructions: Patient medically stabilized and cleared for transfer to [facility] for cardiac catheterization and further medical care. <Borker,Hilary V - Last Filed: 10/17/18 21:56> Provider - Provider Date of Admission: 10/15/18 09:41 Attending physician: Neymar Epps MD Consults: 10/14/18 20:25 Cardiology Consult Routine Comment: Consulting Provider: Clifton Blair Consulting Physician: Clifton Blair Reason for Consult: Chest Pain, R/O ACS. Hx of CABG, 10/15/18 15:36 Pastoral Care Referral Routine Comment: Physician Instructions: Reason For Exam: would like info on advanced directive Diagnosis - Discharge Diagnosis (1) Non-STEMI (non-ST elevated myocardial infarction) Status: Acute (2) CAD (coronary artery disease) Status: Acute (3) Hx of CABG Status: Acute (4) Diabetes Status: Acute (5) Hypertension Status: Acute (6) Lipid disorder Status: Acute (7) Diarrhea Status: Acute Hospital Course - Lab Results Lab Results: Micro Results 10/15/18 12:15 Stool Stool Culture - Final NO SALMONELLA, SHIGELLA OR CAMPYLOBACTER ISOLATED. 10/14/18 22:27 Blood Blood Culture - Preliminary NO GROWTH AFTER 48 HOURS 10/14/18 22:27 Blood Blood Culture - Preliminary NO GROWTH AFTER 48 HOURS 10/15/18 12:15 Nose MRSA Culture (Admit) - Final MRSA NOT DETECTED 10/15/18 12:15 Stool Ova and Parasite Concentrate Exam - Final 10/15/18 01:35 Urine Random Urine Culture - Final No Growth (<1,000 CFU/ML) Most Recent Lab Values WBC 8.9 K/uL (4.8-10.8) 10/17/18 03:51 RBC 4.10 Mil/uL (4.40-5.90) L 10/17/18 03:51 Hgb 11.5 g/dL (12.0-18.0) L 10/17/18 03:51 Hct 34.1 % (35.0-51.0) L 10/17/18 03:51 MCV 83.2 fL (80.0-94.0) 10/17/18 03:51 MCH 28.0 pg (27.0-31.0) 10/17/18 03:51 MCHC 33.7 g/dL (33.0-37.0) 10/17/18 03:51 RDW 13.7 % (11.5-14.5) 10/17/18 03:51 Plt Count 213 K/uL (130-400) 10/17/18 03:51 MPV 9.2 fL (7.2-11.7) 10/17/18 03:51 Neut % (Auto) 60.8 % (50.0-75.0) 10/17/18 03:51 Lymph % (Auto) 24.5 % (20.0-40.0) 10/17/18 03:51 [place] % (Auto) 10.3 % (0.0-10.0) H 10/17/18 03:51 Eos % (Auto) 4.2 % (0.0-4.0) H 10/17/18 03:51 Baso % (Auto) 0.2 % (0.0-2.0) 10/17/18 03:51 Neut # (Auto) 5.4 K/uL (1.8-7.0) 10/17/18 03:51 Lymph # (Auto) 2.2 K/uL (1.0-4.3) 10/17/18 03:51 [place] # (Auto) 0.9 K/uL (0.0-0.8) H 10/17/18 03:51 Eos # (Auto) 0.4 K/uL (0.0-0.7) 10/17/18 03:51 Baso # (Auto) 0.0 K/uL (0.0-0.2) 10/17/18 03:51 Neutrophils % (Manual) 88 % (50-75) H 10/14/18 16:12 Lymphocytes % (Manual) 5 % (20-40) L 10/14/18 16:12 Monocytes % (Manual) 5 % (0-10) 10/14/18 16:12 Eosinophils % (Manual) 2 % (0-4) 10/14/18 16:12 Platelet Estimate Normal (NORMAL) 10/14/18 16:12 Microcytosis (manual) Slight 10/14/18 16:12 Rouleaux Slight 10/14/18 16:12 PT 12.5 SECONDS (9.7-12.2) H 10/14/18 16:12 INR 1.1 10/14/18 16:12 APTT 63 SECONDS (21-34) H 10/17/18 03:51 Sodium 132 mmol/L (132-148) 10/17/18 03:51 Potassium 3.7 mmol/L (3.6-5.2) 10/17/18 03:51 Chloride 97 mmol/L (98-107) L 10/17/18 03:51 Carbon Dioxide 27 mmol/L (22-30) 10/17/18 03:51 Anion Gap 12 (10-20) 10/17/18 03:51 BUN 9 mg/dL (9-20) 10/17/18 03:51 Creatinine 0.8 mg/dL (0.8-1.5) 10/17/18 03:51 Est GFR ( Amer) > 60 10/17/18 03:51 Est GFR (Non-Af Amer) > 60 10/17/18 03:51 POC Glucose (mg/dL) 173 mg/dL (65-110) H 10/16/18 16:23 Random Glucose 121 mg/dL (75-110) H 10/17/18 03:51 Hemoglobin A1c 6.6 % (4.2-6.5) H 10/15/18 06:42 Calcium 8.6 mg/dl (8.6-10.4) 10/17/18 03:51 Phosphorus 3.6 mg/dL (2.5-4.5) 10/17/18 03:51 Magnesium 1.7 mg/dL (1.6-2.3) 10/17/18 03:51 Total Bilirubin 0.6 mg/dL (0.2-1.3) 10/17/18 03:51 AST 29 U/L (17-59) 10/17/18 03:51 ALT 22 U/L (21-72) 10/17/18 03:51 Alkaline Phosphatase 67 U/L (38-126) 10/17/18 03:51 Total Creatine Kinase 56 U/L (55-170) 10/16/18 00:58 CK-MB (Mass) 5.79 ng/mL (0.0-3.38) H 10/16/18 00:58 Troponin I 3.4300 ng/mL (0.00-0.120) H* 10/16/18 00:58 Total Protein 6.6 g/dL (6.3-8.3) 10/17/18 03:51 Albumin 3.8 g/dL (3.5-5.0) 10/17/18 03:51 Globulin 2.9 gm/dL (2.2-3.9) 10/17/18 03:51 Albumin/Globulin Ratio 1.3 (1.0-2.1) 10/17/18 03:51 Vitamin B12 910 pg/mL (239-931) 10/15/18 06:42 Free T4 1.32 ng/dL (0.78-2.19) 10/15/18 06:42 TSH 3rd Generation 1.85 mIU/L (0.46-4.68) 10/15/18 06:42 Urine Color Kristen (YELLOW) 10/15/18 01:35 Urine Clarity Hazy (Clear) 10/15/18 01:35 Urine pH 5.0 (5.0-8.0) 10/15/18 01:35 Ur Specific [place] 1.019 (1.003-1.030) 10/15/18 01:35 Urine Protein 1+ mg/dL (NEGATIVE) H 10/15/18 01:35 Urine Glucose (UA) Normal mg/dL (Normal) 10/15/18 01:35 Urine Ketones Negative mg/dL (NEGATIVE) 10/15/18 01:35 Urine Blood Negative (NEGATIVE) 10/15/18 01:35 Urine Nitrate Negative (NEGATIVE) 10/15/18 01:35 Urine Bilirubin Negative (NEGATIVE) 10/15/18 01:35 Urine Urobilinogen Normal mg/dL (0.2-1.0) 10/15/18 01:35 Ur Leukocyte Esterase Neg Erickson/uL (Negative) 10/15/18 01:35 Urine WBC (Auto) 4 /hpf (0-5) 10/15/18 01:35 Urine RBC (Auto) 21 /hpf (0-3) H 10/15/18 01:35 Ur Squamous Epith Cells < 1 /hpf (0-5) 10/15/18 01:35 Urine Bacteria Rare (<OCC) 10/15/18 01:35 Hyaline Casts 3-5 /lpf (0-2) H 10/15/18 01:35 Stool Leukocytes, Qual Negative (NEGATIVE) 10/15/18 12:11 C. difficile Ag & Toxin Negative (NEGATIVE) 10/15/18 12:11 Attending/Attestation - Attestation Notes (Text): patient transferred to [facility] for cardiac cath. medically stable of transfer. Noted prior workup noted below. This is summary of patient's hospitalization. Please see EMR for full detail of record. Discharge Diagnoses: NSTEMI Assessment/Plan * Transferred to the intensive care following troponin rise from 1to 9 10/15/18 * Patient did receive aspirin, Plavix, as well as heparin drip on 10/15/18 * Serial EKGs performed patient is non-STEMI discussed case with cardiology patient to be transferred to [place] to be seen by the primary hand i tube bender per request of family * Patient is currently on aspirin, Plavix, beta-meagan, heparin drip, statin, thiazide diuretic and Norvasc * Patient has significant cardiac risk factors including CAD, history of quadruple bypass surgery initially in 1999 3 repeat cardiac cath in 2016 as well as lipids are diabetes, hypertension * Transferred to [place] 10/17/18 this morning per request of family for continued cardiac care Hx of CAD s/p CABG Assessment/Plan * aspirin, statin, beta meagan, prem cardiology on board * prior cath 2016 * Transferred to [place] 10/17/18 this morning per request of family for continued cardiac care DM II Assessment/Plan * A1C 6.6 * home meds held * ISS medium * accuchecks ACHS * hypoglycemic protocol HTN Assessment/Plan * Continue antihypertensives Leukocytosis Assessment/Plan * Monitor * Blood cultures negative times 24 hours x2 * urine culture no growth Diarrhea Assessment/Plan * ova and parasite negative, c diff: negative, fecal leukocyte * Patient did provide a sample awaiting results * patient reports resolved; restarted immodium prn PPx, Diet, Disposition * DVT ppx: scds, heparin ggt * GI: not indicated at this time * Diet: HHD
--- NOTE | 2018-10-19 08:32 | CARD ---
APPROVED REPORT Date of service: 10/15/2018 EKG Measurement Heart [id number] <Conclusion> Sinus rhythm with marked sinus arrhythmia with 1st degree AV block Can't rule out SA block Otherwise normal ECG
--- NOTE | 2018-10-19 08:33 | CARD ---
APPROVED REPORT Date of service: 10/15/2018 EKG Measurement Heart [id number] <Conclusion> Sinus rhythm with marked sinus arrhythmia Nonspecific T wave abnormality Abnormal ECG
== END 2018-10-17 05:45 | disposition short-term general hospital (02) | DRG 282 ==
LOC: C.ER 15:22 → C.9E 17:29 → C.6T 19:19 → OBSVTOIN 10-15 09:41 → C.9I 10-15 09:56
PROVIDERS: ADMIT Internal Medicine; ATTEND Internal Medicine
DX: I21.4 Non-ST elevation (NSTEMI) myocardial infarction (principal); I10 Essential (primary) hypertension; E61.1 Iron deficiency; E11.9 Type 2 diabetes mellitus without complications; D64.9 Anemia, unspecified; I25.110 Atherosclerotic heart disease of native coronary artery with unstable angina pectoris; D72.829 Elevated white blood cell count, unspecified; Z79.82 Long term (current) use of aspirin; Z95.1 Presence of aortocoronary bypass graft; R19.7 Diarrhea, unspecified